=== PATIENT | female | born 1970 | race Caucasian/White ===

== ENCOUNTER 2019-11-08 19:15 | Inpatient (IN) | payer OTHER ==
[~2019-11-08] VITALS: Ht 160 cm; Wt 75.4 kg
[2019-11-08] MEDS ORDERED: JANU100T14 PO (19:28)
[2019-11-08] MEDS ORDERED: LISI10TA4 PO ×2 (19:29→23:59)
[2019-11-08] MEDS ORDERED: GLIP5TAB8 PO ×2 (19:29→23:59)
[2019-11-08 19:53] LABS: BASO # 0.1 10^3/uL (0.0-0.2); BASO % 0.3 % (0.0-1.0); EOS % 0.1 % (0.0-3.0); HEMATOCRIT 40.7 % (36.0-47.0); LYMPH % 8.4 % (24.0-44.0); MEAN CORPUSCULAR HEMOGLOBIN 18.4 pg (27.0-33.0); MEAN CORPUSCULAR VOLUME 68.2 fl (80.0-96.0); MONO # 0.5 10^3/uL (0.0-0.8); MONO % 2.1 % (0.0-5.0); NEUTROPHILS # 20.7 10^3/uL (1.5-8.5); NEUTROPHILS % 88.5 % (36.0-66.0); PLATELET COUNT, AUTOMATED 563 10^3/uL (150-450); RED BLOOD COUNT 5.97 10^6/uL (4.00-5.40); WHITE BLOOD COUNT 23.4 10^3/uL (4.0-10.0)
[2019-11-08] MEDS ORDERED: NS 1,000 ML IV SCH (20:04)
[2019-11-08] MEDS ORDERED: MORPHINE 4 MG/ML 1ML VIAL/SYRINGE (J2270) IV ONE (20:15)
[2019-11-08] MEDS ORDERED: ONDANSETRON 4MG/2ML VIAL (J2405) IV ONE (20:15)
[2019-11-08 20:17] LABS: HCG, SERUM QUALITATIVE NEGATIVE (NEGATIVE)
[2019-11-08 20:18] LABS: ALBUMIN 3.6 GM/DL (3.2-5.2); ALT/SGPT 17 U/L (12-78); BILIRUBIN,DIRECT < 0.1 MG/DL (0.0-0.2); BILIRUBIN,TOTAL 0.3 MG/DL (0.2-1.0); BLOOD UREA NITROGEN 14 MG/DL (7-18); CALCIUM LEVEL 9.2 MG/DL (8.5-10.1); CARBON DIOXIDE LEVEL 25 MEQ/L (21-32); CHLORIDE LEVEL 105 MEQ/L (98-107); CREATININE FOR GFR 0.65 MG/DL (0.55-1.30); GLOMERULAR FILTRATION RATE > 60.0 (>58); GLUCOSE, FASTING 174 MG/DL (70-100); LIPASE 113 U/L (73-393); POTASSIUM SERUM 4.4 MEQ/L (3.5-5.1); SODIUM LEVEL 138 MEQ/L (136-145); TOTAL PROTEIN 7.5 GM/DL (6.4-8.2)
[2019-11-08] MEDS ORDERED: ISOVUE-370 76% 100ML VIAL (Q9967) As Ordered ONE (20:56)
--- NOTE | 2019-11-08 22:24 | REPVR ---
PROCEDURE INFORMATION: Exam: CT Abdomen And Pelvis With Contrast Exam date and time: 11/08/2019 9:17 PM Age: 49 years old Clinical indication: Abdominal pain; Generalized; Additional info: Epigastric and right sided pain TECHNIQUE: Imaging protocol: Computed tomography of the abdomen and pelvis with intravenous contrast. Radiation optimization: All CT scans at this facility use at least one of these dose optimization techniques: automated exposure control; mA and/or kV adjustment per patient size (includes targeted exams where dose is matched to clinical indication); or iterative reconstruction. Contrast material: ISOVUE 370; Contrast volume: 100 ml; Contrast route: IV; COMPARISON: No relevant prior studies available. FINDINGS: Liver: The liver is low attenuation indicating hepatic steatosis. Gallbladder and bile ducts: Normal. No calcified stones. No ductal dilation. Pancreas: Normal. No ductal dilation. Spleen: Normal. No splenomegaly. Adrenals: Normal. No mass. Kidneys and ureters: Non-obstructing calyceal stones in the left kidney. Kidneys are otherwise unremarkable. No hydronephrosis. Stomach and bowel: Wall thickening and bowel wall edema are noted in the small bowel, mainly in the left abdomen. Mild mucosal enhancement and intraluminal fluid. No bowel obstruction, pneumatosis, or portal venous gas. Colon is unremarkable. Appendix: No evidence of appendicitis. Intraperitoneal space: Moderate amount of ascites. Mild interloop free fluid and mesenteric edema. Vasculature: Unremarkable. No abdominal aortic aneurysm. Lymph nodes: Unremarkable. No enlarged lymph nodes. Bladder: Unremarkable as visualized. Reproductive: Probable large dorsal uterine fibroid measuring 4.8 cm. 3.5 cm left ovarian cyst. No hydrosalpinx. Bones/joints: Unremarkable. No acute fracture. Soft tissues: Unremarkable. IMPRESSION: 1. Small bowel wall thickening and edema with moderate amount of ascites suggesting a infectious or inflammatory enteritis. No bowel obstruction or secondary signs of ischemia. 2. Hepatic steatosis. 3. Dorsal uterine fibroid Electronically signed by: Tc Locke On 11/08/2019 22:24:05 PM
[2019-11-08] MEDS ORDERED: JANU100T PO (23:59)
[2019-11-09] MEDS ORDERED: MORPHINE 4 MG/ML 1ML VIAL/SYRINGE (J2270) IV ONE
[2019-11-09] MEDS ORDERED: metroNIDAZOLE 500 MG in IV 1 EA IV ONE ×2
[2019-11-09] MEDS ORDERED: CIPROFLOXACIN 400 MG in IV 1 EA IV ONE ×2
[2019-11-09] MEDS ORDERED: GLUCOSE 4 GM CHEW TABLET PO PRN (00:30)
[2019-11-09] MEDS ORDERED: GLUCAGON FOR INJ 1 MG VIAL (J1610) SC PRN (00:30)
[2019-11-09] MEDS ORDERED: DEXTROSE 50% 50 ML SYRINGE IV PRN (00:30)
--- NOTE | 2019-11-09 00:41 | HPEPDOC ---
General Date of Admission Nov 09, 2019 at 00:20 Date of Service: Nov 09, 2019 Chief Complaint The patient is a 49-year-old female Who presented to the emergency room with complaints of abdominal pain that started at noon History of Present Illness Patient is a 49-year-old female with a PMHx of HTN, NIDDM2, DLP who presented to the ER with complaints of abdominal pain. Patient reported that her abdominal pain started at noon. . She describes her pain occurring in the middle of her abdomen, 10/10, sharp, radiating to the right side and occurring intermittently. Patient had attempted to alleviate her pain with some yogurt and a banana, as she thought it was related to heartburn, however this did not change the intensity of pain. Patient denies any aggravating factors. She has not experienced any fevers or chills over the last 2 weeks. She did report an episode of nausea and vomiting that occurred once while she was in the emergency room. She described the vomitus as light-colored without any blood. Patient denies any diarrhea or constipation and has reported a formed bowel movement that occurred at 4 PM. Patient denies experiencing any urinary discomfort. Patient denies any chest pain, shortness breath, palpitations or cough. Home Medications Scheduled Glipizide (Glipizide) 5 Mg Tablet, 5 MG PO DAILY, (Reported) Lisinopril (Lisinopril) 10 Mg Tablet, 10 MG PO DAILY, (Reported) Sitagliptin Phosphate (Januvia) 100 Mg Tablet, 100 MG PO DAILY, (Reported) Allergies Coded Allergies: No Known Allergies (Unverified , 11/08/19) Past Medical History Medical History HTN, NIDDM2, DLP Surgical History Lithotripsy completed in 2008 Family History - Mother with a history of diabetes and hypertension - Father; unknown past medical history Social History - Denies the use of alcohol, tobacco or illicit drugs - Denies recent travel or sick contacts - Lives with and son at [place] - Occupation; patient reports she is currently unemployed and stays at home Review of Systems Other systems 10 point review of systems complete, all negative otherwise stated in HPI Vital Signs - Vitals: BP 103/72, HR 79, RR 17, Sat 96%RA, Temp 98.0F - General: Lying in bed, No acute distress, Speaking in full sentences, AAOx3 - HEENT: NC, AT, PERRLA, EOMI - CVS: RRR, +S1S2 - Lungs: Fair air entry bilaterally, No appreciable wheezing / rales / rhonchi - Abdomen: Soft, Non-distended, tenderness is noted at epigastrium and right upper quadrant - Extremities: No lower extremity edema, No calf tenderness - Neuro: No focal motor or sensory deficit - Skin: No visible rashes Laboratory Data Labs 24H Laboratory Tests 2 11/08/19 19:43: Immature Granulocyte % (Auto) 0.6, Neutrophils (%) (Auto) 88.5H, Lymphocytes (%) (Auto) 8.4L, Monocytes (%) (Auto) 2.1, Eosinophils (%) (Auto) 0.1, Basophils (%) (Auto) 0.3, Neutrophils # (Auto) 20.7H, Lymphocytes # (Auto) 2.0, Monocytes # (Auto) 0.5, Eosinophils # (Auto) 0.0, Basophils # (Auto) 0.1, Nucleated Red Blood Cells % (auto) 0.0, Anion Gap 8, Glomerular Filtration Rate > 60.0, Calcium Level 9.2, Total Bilirubin 0.3, Direct Bilirubin < 0.1, Aspartate Amino Transf (AST/SGOT) 9, Alanine Aminotransferase (ALT/SGPT) 17, Alkaline Phosphatase 89, Total Protein 7.5, Albumin 3.6, Albumin/Globulin Ratio 0.92L, Lipase 113, Human Chorionic Gonadotropin, Qual NEGATIVE 11/08/19 22:51: Lactic Acid Level 1.6 CBC/BMP Laboratory Tests 11/08/19 19:43 Plan / VTE VTE Prophylaxis Ordered?: Yes Plan Plan Abdominal pain associated with nausea and vomiting - possibly 2/2 enteritis; possibly 2/2 bacterial, possibly 2/2 viral, possibly 2/2 inflammatory disease - Presented to the emergency room after experiencing abdominal pain that started at noon - Physical does reveal epigastric tenderness - Patient remains hemodynamically stable and afebrile - Significant leukocytosis with neutrophil predominance; no lactic acidosis - CT abdomen / pelvis 11/08: 1. Small bowel wall thickening and edema with moderate amount of ascites suggesting a infectious or inflammatory enteritis. No bowel obstruction or secondary signs of ischemia. 2. Hepatic steatosis. 3. Dorsal uterine fibroid - Will check blood cultures / CRP / IBD serology / UA with reflex - Will c/w Ciprofloxacin and Flagyl for intra-abdominal coverage - Will c/w symptomatic control with Morphine / Dicyclomine / Zofran - Case has been discussed by ER provider, Dr. Larson with General surgery, Dr. Keene - Has noted that he will be on consultation tomorrow AM Ascites - possibly 2/2 enteritis - Liver function is within normal range - Will continue with antibiotics as stated above - Consider possible diagnostic paracentesis tomorrow morning Leukocytosis - See above Thrombocytosis - likely 2/2 reactive etiology - Will continue to monitor counts Normocytic anemia - No baseline for comparison - Will continue to monitor counts HTN - BP appears to be well controlled - Will c/w Lisinopril with holding parameters NIDDM2 - Will hold oral medications - Will start ISS DLP - Currently not on any medications Gastrointestinal prophylaxis - Will start Protonix DVT prophylaxis - Will start Lovenox ALEXIS HUGO MD Nov 09, 2019 00:41
[2019-11-09 01:45] VITALS: BP 118/75
[2019-11-09] MEDS: PANTOPRAZOLE 40MG INJ (PROTONIX) (C9113) IV SCH (02:09)
[2019-11-09] MEDS: D5W/0.45% SODIUM CHLORIDE 1,000 ML IV SCH ×2 (02:09→16:19)
[2019-11-09] MEDS: metroNIDAZOLE 500 MG in IV 1 EA IV SCH ×3 (02:09→18:21)
[2019-11-09] MEDS: HumaLOG INSULIN (NovoLOG) PER UNIT SC SCH ×6 (07:30→21:00)
[2019-11-09 08:00] VITALS: BP 110/67
[2019-11-09] MEDS: lisinopriL 10 MG TAB PO SCH (08:49)
[2019-11-09] MEDS: MORPHINE 2 MG/ML 1ML VIAL (J2270) IV PRN ×3 (08:50→18:22)
[2019-11-09] MEDS: ENOXAPARIN 40 MG/0.4 ML SYRINGE (J1650) SC SCH (08:50)
[2019-11-09 09:11] LABS: HEMATOCRIT 32.2 % (36.0-47.0); MEAN CORPUSCULAR HEMOGLOBIN 18.9 pg (27.0-33.0); MEAN CORPUSCULAR VOLUME 67.8 fl (80.0-96.0); PLATELET COUNT, AUTOMATED 475 10^3/uL (150-450); RED BLOOD COUNT 4.75 10^6/uL (4.00-5.40); WHITE BLOOD COUNT 16.5 10^3/uL (4.0-10.0)
[2019-11-09 09:41] LABS: BLOOD UREA NITROGEN 12 MG/DL (7-18); CALCIUM LEVEL 8.1 MG/DL (8.5-10.1); CARBON DIOXIDE LEVEL 25 MEQ/L (21-32); CHLORIDE LEVEL 106 MEQ/L (98-107); CREATININE FOR GFR 0.64 MG/DL (0.55-1.30); GLOMERULAR FILTRATION RATE > 60.0 (>58); GLUCOSE, FASTING 152 MG/DL (70-100); SODIUM LEVEL 138 MEQ/L (136-145)
[2019-11-09] MEDS: DICYCLOMINE 10 MG CAP PO PRN (10:16)
[2019-11-09] MEDS: CIPROFLOXACIN 400 MG in IV 1 EA IV SCH (11:52)
--- NOTE | 2019-11-09 16:00 | IPNPDOC ---
Date Seen The patient was seen on 11/09/19. Progress Note SUBJECTIVE: Rocio was seen and examined this morning while sitting upright in bed. She reports being able to get some sleep overnight. Patient reports continuing to have epigastric discomfort that radiates to her right upper abdominal quadrant whenever she moves. She does however state that this discomfort is improved from yesterday. Patient had some burning with urination last evening. Patient has been walking to and from the bathroom with the assistance of nursing as she complains of associated dizziness with ambulation. Patient has not had a bowel movement since 1600 yesterday but is passing flatus. Patient also endorses moderate skin "tightness" of right forearm and right hand. Patient denies headache, feeling lightheaded, dizziness, fever, chills, night sweats chest pain, chest pressure, palpitations, shortness of breath, dysuria or hematuria currently. Patient also denies consuming any recent undercooked meats, difficulty swallowing, any recent new medications or change in medications, any new changes in diet, or family history of inflammatory bowel disease. OBJECTIVE PHYSICAL EXAMINATION: VITAL SIGNS: Please see below. GENERAL: Pleasant female who is well-nourished and well-developed. Patient appears to be in some mild discomfort at times during exam, but is in no apparent acute distress of any kind. Alert and oriented 3. HEENT: Normocephalic, atraumatic. Anicteric and noninjected sclera. No pharyngeal erythema or exudate. Trachea is midline. CARDIOVASCULAR: Regular rate, regular rhythm. S1, S2 auscultated. No murmurs or rubs appreciated. RESPIRATORY: No wheezes, crackles or rhonchi appreciated. Mildly diminished tidal volume. Symmetric chest expansion. Breathing room air and speaking in full senses.. ABDOMINAL: Soft, nondistended. Tenderness of right upper quadrant, right lower quadrant, and epigastrum with localized voluntary guarding. Normoactive bowel sounds present. Winces in discomfort throughout abdominal exam. No palpable masses appreciated. EXTREMITIES: 2+ radial and posterior tibial pulses bilaterally. No lower extremity edema. No clubbing or cyanosis. Right forearm and right dorsum of hand appear moderately swollen as compared to the left. There is no erythema or skin breakdown and there is adequate capillary refill. IV in place in right AC. NEUROLOGICAL: Awake, alert and oriented 3. No focal neurological deficits appreciated. PSYCHOLOGICAL: Mood and affect appear appropriate LABORATORY DATA, IMAGING STUDIES, MICROBIOLOGY: Please see below. ASSESSMENT AND PLAN: This is a 49-year-old female with past medical history of hypertension, type 2 diabetes, dyslipidemia, who presented to the emergency department on 11/08 after experiencing abdominal pain earlier in the day radiating to her right side with one episode of nausea and vomiting in the emergency department. In the emergency department she was found to have neutrophil predominant leukocytosis with microcytic hypochromic anemia and thrombocytopenia. CT abdomen and pelvis showed small bowel edema and wall thickening with a moderate amount of ascites and hepatic steatosis. There was no small bowel obstruction or signs of ischemia. Patient was admitted under the care of the hospitalist service. #Ascites likely secondary to ileitis/enteritis -Moderate ascites visualized on CT abdomen and pelvis with edema and thickened small bowel king -Day 2 of ciprofloxacin and metronidazole -WBC remains elevated, but decreased from yesterday; continue to follow -Patient switched to a clear liquid diet today; should she tolerate this, plan to advance to soft diet tomorrow -Patient placed on dairy restrictions -prn Zofran and dicyclomine #Neutrophil predominant leukocytosis -WBC remains elevated, but is trending down.; Continue to follow -Continue with ciprofloxacin and metronidazole #Microcytic hypochromic anemia -No prior history and system to compare to baseline; continue to follow #Thrombocytopenia -Remains elevated, but decreased from yesterday; continue to follow #Type 2 diabetes: -Home oral diabetes medications held -Continue with sliding scale insulin #Hypertension: -Well-controlled; continue with home lisinopril #GI prophylaxis: Protonix IV #DVT prophylaxis: Lovenox sc DISPOSITION: Discharged likely in the next day or 2 pending continued toleration of diet advancement and downtrending WBC. VS, I&O, 24H, Fishbone Vital Signs/I&O Vital Signs Date Time Temp Pulse Resp B/P (MAP) Pulse Ox O2 Delivery O2 Flow Rate FiO2 11/09/19 13:10 20 Room Air 11/09/19 08:49 110/67 11/09/19 08:00 98.0 78 95 I&O- Last 24 Hours up to 6 AM 11/09/19 06:00 Intake Total 1340 ml Output Total 300 ml Balance 1040 ml Laboratory Data 24H LABS Laboratory Tests 2 11/08/19 19:43: Immature Granulocyte % (Auto) 0.6, Neutrophils (%) (Auto) 88.5H, Lymphocytes (%) (Auto) 8.4L, Monocytes (%) (Auto) 2.1, Eosinophils (%) (Auto) 0.1, Basophils (%) (Auto) 0.3, Neutrophils # (Auto) 20.7H, Lymphocytes # (Auto) 2.0, Monocytes # (Auto) 0.5, Eosinophils # (Auto) 0.0, Basophils # (Auto) 0.1, Nucleated Red Blood Cells % (auto) 0.0, Anion Gap 8, Glomerular Filtration Rate > 60.0, Calcium Level 9.2, Total Bilirubin 0.3, Direct Bilirubin < 0.1, Aspartate Amino Transf (AST/SGOT) 9, Alanine Aminotransferase (ALT/SGPT) 17, Alkaline Phosphatase 89, Total Protein 7.5, Albumin 3.6, Albumin/Globulin Ratio 0.92L, Lipase 113, Human Chorionic Gonadotropin, Qual NEGATIVE 11/08/19 22:51: Lactic Acid Level 1.6 11/09/19 00:38: C-Reactive Protein, Quantitative 1.29H 11/09/19 01:57: Urine Color YELLOW, Urine Appearance CLEAR, Urine pH 5.0, Urine Specific [place] >1.060H, Urine Protein NEGATIVE, Urine Glucose (UA) 1+H, Urine Ketones 1+H, Urine Blood NEGATIVE, Urine Nitrite NEGATIVE, Urine Bilirubin NEGATIVE, Urine Urobilinogen 0.2, Urine Leukocyte Esterase NEGATIVE, Urine WBC (Auto) 1, Urine RBC (Auto) 2, Urine Hyaline Casts (Auto) 0, Urine Bacteria (Auto) NEGATIVE, Urine Squamous Epithelial Cells 2, Urine Mucus (Auto) SMALL, Urine Sperm (Auto) 11/09/19 02:14: Bedside Glucose (Misc Panel) 183H 11/09/19 08:18: Bedside Glucose (Misc Panel) 153H 11/09/19 08:31: Nucleated Red Blood Cells % (auto) 0.0, Anion Gap 7L, Glomerular Filtration Rate > 60.0, Calcium Level 8.1L 11/09/19 11:36: Bedside Glucose (Misc Panel) 133H CBC/BMP Laboratory Tests 11/08/19 19:43 11/09/19 08:31 Microbiology Microbiology 11/09/19 Blood Culture, Received Pending 11/09/19 Blood Culture, Received Pending GME ATTESTATION GME ATTESTATION My faculty preceptor for this patient encounter was physically present during the encounter and was fully available. All aspects of the patient interview, examination, medical decision making process, and medical care plan development were reviewed and approved by the faculty preceptor. The faculty preceptor is aware and concurs with the plan as stated in the body of this note and will attest to such by his/her cosignature. ATTENDING NOTE Patient was seen and examined by me this morning with the residents. Agree with the above assessment and plan CARLOS PEREZ D.O. Nov 09, 2019 16:00 MARCO HALL MD Nov 10, 2019 10:41
[2019-11-09 20:10] VITALS: BP 93/55
[2019-11-10] MEDS: PANTOPRAZOLE 40MG INJ (PROTONIX) (C9113) IV SCH ×2 (00:17→23:51)
[2019-11-10] MEDS: CIPROFLOXACIN 400 MG in IV 1 EA IV SCH ×3 (00:17→23:51)
[2019-11-10] MEDS: D5W/0.45% SODIUM CHLORIDE 1,000 ML IV SCH (02:30)
[2019-11-10] MEDS: metroNIDAZOLE 500 MG in IV 1 EA IV SCH ×3 (02:31→18:30)
[2019-11-10 05:48] VITALS: BP 105/65
[2019-11-10 06:59] LABS: BASO % 0.3 % (0.0-1.0); EOS # 0.2 10^3/uL (0.0-0.5); EOS % 1.8 % (0.0-3.0); HEMATOCRIT 28.8 % (36.0-47.0); HEMOGLOBIN 7.8 g/dl (12.0-15.5); LYMPH # 2.6 10^3/uL (1.5-5.0); LYMPH % 25.9 % (24.0-44.0); MEAN CORPUSCULAR HEMOGLOBIN 18.6 pg (27.0-33.0); MEAN CORPUSCULAR HGB CONC 27.1 g/dl (32.0-36.5); MEAN CORPUSCULAR VOLUME 68.7 fl (80.0-96.0); MONO # 0.8 10^3/uL (0.0-0.8); MONO % 7.7 % (0.0-5.0); NEUTROPHILS # 6.4 10^3/uL (1.5-8.5); NEUTROPHILS % 63.9 % (36.0-66.0); PLATELET COUNT, AUTOMATED 384 10^3/uL (150-450); RED BLOOD COUNT 4.19 10^6/uL (4.00-5.40)
[2019-11-10 07:21] LABS: ALBUMIN 2.6 GM/DL (3.2-5.2); ALT/SGPT 9 U/L (12-78); BILIRUBIN,TOTAL 0.3 MG/DL (0.2-1.0); BLOOD UREA NITROGEN 7 MG/DL (7-18); CALCIUM LEVEL 7.9 MG/DL (8.5-10.1); CARBON DIOXIDE LEVEL 24 MEQ/L (21-32); CHLORIDE LEVEL 109 MEQ/L (98-107); GLOMERULAR FILTRATION RATE > 60.0 (>58); GLUCOSE, FASTING 143 MG/DL (70-100); MAGNESIUM LEVEL 1.9 MG/DL (1.8-2.4); POTASSIUM SERUM 3.7 MEQ/L (3.5-5.1); SODIUM LEVEL 139 MEQ/L (136-145); TOTAL PROTEIN 6.2 GM/DL (6.4-8.2)
[2019-11-10] MEDS: HumaLOG INSULIN (NovoLOG) PER UNIT SC SCH ×4 (07:30→21:00)
[2019-11-10 08:15] LABS: HEMATOCRIT 29.3 % (36.0-47.0); HEMOGLOBIN 7.9 g/dl (12.0-15.5); MEAN CORPUSCULAR HEMOGLOBIN 18.5 pg (27.0-33.0); MEAN CORPUSCULAR VOLUME 68.8 fl (80.0-96.0); PLATELET COUNT, AUTOMATED 388 10^3/uL (150-450); RED BLOOD COUNT 4.26 10^6/uL (4.00-5.40); WHITE BLOOD COUNT 10.1 10^3/uL (4.0-10.0)
[2019-11-10] MEDS: lisinopriL 10 MG TAB PO SCH (08:35)
[2019-11-10] MEDS: MORPHINE 2 MG/ML 1ML VIAL (J2270) IV PRN (08:35)
[2019-11-10 08:52] LABS: C REACTIVE PROTEIN QUANTITATIV 1.59 MG/DL (0.00-0.30)
[2019-11-10] MEDS: ENOXAPARIN 40 MG/0.4 ML SYRINGE (J1650) SC SCH (09:00)
[2019-11-10] MEDS ORDERED: ISOVUE-370 76% 100ML VIAL (Q9967) As Ordered ONE (09:17)
--- NOTE | 2019-11-10 10:23 | REP ---
CT ABDOMEN AND PELVIS WITH IV BUT WITHOUT ORAL CONTRAST: HISTORY: Rule out intra-abdominal bleeding. Comparison study November 08, 2019. CT CONTRAST DOSE: 100 mL of intravenous Isovue [address] FINDINGS: Preliminary digital terrazzo journeyman radiograph demonstrates a normal bowel gas pattern. There is bilateral lower lobe and bibasilar discoid atelectasis. A small right pleural effusion is seen and a tiny amount of left pleural fluid is observed. Pleural changes are new. There is minimal upper abdominal ascites which is actually little less prominent than on the November 08, 2019 prior study. There is mild ascites in the paracolic gutter and peritoneal reflections essentially unchanged. There is a fold in the gallbladder fundus. No other abnormality is noted in the gallbladder. No abnormality is noted in the pancreas. Normal adrenal glands are seen. Mild diffuse fatty infiltration of the liver. There is an intrarenal calculus in the lower pole left kidney which measures 9 mm in greatest diameter. This is unchanged. There are one or two loops of small bowel demonstrating moderate mural thickening in the left mid abdomen. This is less extensive but otherwise similar than on the November 08, 2019 study. No obstructive lesion is seen. Large bowel does not appear to be affected. There is a large enhancing uterine fibroid, 5.5 cm in greatest diameter in the dorsal aspect of the fundus of the uterus. Uterus is enlarged measuring 14 cm x 8.8 cm x 7.4 cm in overall dimension. This is unchanged. There is a small left ovarian cyst, 3.1 cm in diameter. IMPRESSION: There is a little less ascites. There is still some mural thickening in a loop of small bowel in the left mid abdomen however this is somewhat improved from the November 08, 2019. The uterus is moderately to markedly enlarged, 14 cm. There is a 5 cm fibroid. A small left ovarian cyst is seen. There is a 9 mm intrarenal calculus in the lower pole left kidney without hydronephrosis. Electronically Signed by Tito Keith MD 11/10/2019 08:44 P
[2019-11-10 14:00] VITALS: BP 108/66
[2019-11-10 14:10] LABS: HEMATOCRIT 27.6 % (36.0-47.0); HEMOGLOBIN 7.8 g/dl (12.0-15.5)
[2019-11-10 14:22] LABS: INR 1.17; PROTHROMBIN TIME 14.6 SECONDS (11.8-14.0)
[2019-11-10 14:23] LABS: PARTIAL THROMBOPLASTIN TIME 25.4 SECONDS (25.0-38.4)
[2019-11-10] MEDS: ONDANSETRON 4MG/2ML VIAL (J2405) IV PRN (18:30)
--- NOTE | 2019-11-10 19:36 | IPNPDOC ---
Date Seen The patient was seen on 11/10/19. Progress Note SUBJECTIVE: Rocio was seen and examined this morning while lying upright in bed. She reports still being in discomfort secondary to her abdominal pain localized to the epigastrium and right upper and right lower abdominal quadrants. She states that severity of her pain and discomfort. Has not increased from yesterday. She continues to have feel mildly nauseated and bloated, with some occasional heartburn. She has not had a bowel movement since admission. She has not vomited. Patient denies current or recent hematemesis, coffee ground emesis, melena, hematochezia, blood in the stool/probable water/toilet tissue, epistaxis, hematuria, hemoptysis, easy bleeding or easy bruising of any kind, or history of GI bleed or inflammatory bowel disease. Patient states that 3 [address] ago while in the [facility]. She developed acute drop in hemoglobin into the sixes and was treated with 2 blood transfusions. She states that she had had 3 weeks of very heavy menses leading into her time of anemia and transfusions. She took oral contraceptive pills for a few months and her menses subsequently returned to normal. Patient did have a EGD performed approximately 10 years ago that showed a non-bleeding, nonperforated gastric ulcer. Patient also denies feeling lightheaded, headache, fever, chills, or night sweats at this time. OBJECTIVE PHYSICAL EXAMINATION: VITAL SIGNS: Please see below. GENERAL: Pleasant female who is well-nourished and well-developed. Patient appears to be in some moderate discomfort at times during exam, but is in no apparent acute distress of any kind. Alert and oriented 3. HEENT: Normocephalic, atraumatic. Anicteric and noninjected sclera. Mild conjunctival pallor. Trachea is midline. CARDIOVASCULAR: Regular rate, regular rhythm. S1, S2 auscultated. No murmurs or rubs appreciated. RESPIRATORY: No wheezes, crackles or rhonchi appreciated. Mildly diminished tid al volume. Symmetric chest expansion. Breathing room air and speaking in full sentences ABDOMINAL: Soft, mild distention. Tenderness of right upper quadrant, right lower quadrant, and epigastrum with localized voluntary guarding. Hypoactive bowel sounds present. Winces in discomfort throughout abdominal exam. No palpable masses appreciated. EXTREMITIES: 2+ radial and posterior tibial pulses bilaterally. No lower extremity edema. No clubbing or cyanosis. Swelling of right upper extremity from yesterday has resolved. IV is now present in left forearm. NEUROLOGICAL: Awake, alert and oriented 3. No focal neurological deficits appreciated. PSYCHOLOGICAL: Mood and affect appear appropriate LABORATORY DATA, IMAGING STUDIES, MICROBIOLOGY: Please see below. ASSESSMENT AND PLAN: This is a 49-year-old female with past medical history of hypertension, type 2 diabetes, dyslipidemia, who presented to the emergency department on 11/08 after experiencing abdominal pain earlier in the day radiating to her right side with one episode of nausea and vomiting in the emergency department. In the emergency department she was found to have neutrophil predominant leukocytosis with microcytic hypochromic anemia and thrombocytopenia. CT abdomen and pelvis showed small bowel edema and wall thickening with a moderate amount of ascites and hepatic steatosis. There was no small bowel obstruction or signs of ischemia. Patient was admitted under the care of the hospitalist service. Patient continued to have epigastric and right abdominal tenderness, mild distention, nausea and reflux through 11/09 and 11/10. White blood cell count and platelet count returned to normal limits on 11/10. Patient tolerated clear liquid diet well on 11/09. Critical drop to hemoglobin in the upper sevens on 11/[address] abdomen and pelvis with IV contrast that showed a little less ascites in the abdomen and pelvis as compared to the 11/08 study. Mural thickening was still seen of the small bowel, but was somewhat improved from 11/08 study. Uterus was markedly enlarged to 14 cm with a 5 cm fibroid. Repeat H&H's remained around 8 on 11/10. Patient had no significant history that would explain acute drop in hemoglobin. Coagulation studies, LDH, reticulocyte count and peripheral smear ordered on 11/10. Consultation placed with general surgery to evaluate for possible internal bleeding on 11/10. Patient made NPO for general surgery consultation. #Ascites likely secondary to ileitis/enteritis -Ascites and small bowel mural thickening still present on repeat CT abdomen today, but decreased from 11/08 study -Day 3 of ciprofloxacin and metronidazole -Patient currently NPO for general surgery evaluation -Patient placed on dairy restrictions -prn Zofran and dicyclomine #Microcytic hypochromic anemia -No prior history and system to compare to baseline -Hemoglobin dropped roughly 3 units since admission, 11.0 to 7.9 -Morning Hemoglobin rechecked to rule out lab error and it remained around 8 -Continuing to trend H&H -Coagulation profile, reticulocyte count, LDH, and peripheral smear ordered -Patient had episode of critical anemia (Hgb around 6) 3 years ago after heavy menses, received 2 units blood. -CT abdomen and pelvis with contrast ordered to rule out intra-abdominal or intrapelvic bleeding -General surgery consult placed to evaluate for internal bleeding -Virus responsible for ileitis/enteritis may be compromising bone marrow #Neutrophil predominant leukocytosis, resolved -WBC now within normal limits #Thrombocytopenia, resolved -Platelets now within normal limits #Type 2 diabetes: -Home oral diabetes medications held -Continue with sliding scale insulin #Hypertension: -Well-controlled; continue with home lisinopril #GI prophylaxis: Protonix IV #DVT prophylaxis: Lovenox sc discontinued today after continued drop in Hgb DISPOSITION: Pending H&H trend, general surgery consultation, and tolerance of eventual diet advancement. VS, I&O, 24H, Fishbone Vital Signs/I&O Vital Signs Date Time Temp Pulse Resp B/P (MAP) Pulse Ox O2 Delivery O2 Flow Rate FiO2 11/10/19 14:00 98.6 79 16 108/66 (80) 95 Room Air I&O- Last 24 Hours up to 6 AM 11/10/19 06:00 Intake Total 2080 ml Output Total 250 ml Balance 1830 ml Laboratory Data 24H LABS Laboratory Tests 2 11/09/19 20:08: Bedside Glucose (Misc Panel) 103 11/10/19 06:47: Immature Granulocyte % (Auto) 0.4, Neutrophils (%) (Auto) 63.9, Lymphocytes (%) (Auto) 25.9, Monocytes (%) (Auto) 7.7H, Eosinophils (%) (Auto) 1.8, Basophils (%) (Auto) 0.3, Neutrophils # (Auto) 6.4, Lymphocytes # (Auto) 2.6, Monocytes # (Auto) 0.8, Eosinophils # (Auto) 0.2, Basophils # (Auto) 0.0, Nucleated Red Blood Cells % (auto) 0.0, Anion Gap 6L, Glomerular Filtration Rate > 60.0, Calcium Level 7.9L, Magnesium Level 1.9, Total Bilirubin 0.3, Aspartate Amino Transf (AST/SGOT) 5L, Alanine Aminotransferase (ALT/SGPT) 9L, Alkaline Phosphatase 61, C-Reactive Protein, Quantitative 1.59H, Total Protein 6.2L, Albumin 2.6#L, Albumin/Globulin Ratio 0.72L 11/10/19 08:07: Nucleated Red Blood Cells % (auto) 0.0 11/10/19 12:00: Bedside Glucose (Misc Panel) 102 11/10/19 13:58: Reticulocyte # (auto) 70.6, Differential Slide Review Report, Peripheral Blood Smear Path Consult PERIPHERAL SMEAR, Percent Reticulocyte Count 1.7H, Reticulocyte Hemoglobin Equivalent 19.2L, Prothrombin Time 14.6H, Prothromb Time International Ratio 1.17, Activated Partial Thromboplast Time 25.4, Lactate Dehydrogenase 110 11/10/19 16:37: Bedside Glucose (Misc Panel) 93 CBC/BMP Laboratory Tests 11/10/19 06:47 11/10/19 08:07 11/10/19 13:58 Microbiology Microbiology 11/09/19 Blood Culture - Preliminary, Resulted No growth after 24 hours . All specim... 11/09/19 Blood Culture - Preliminary, Resulted No growth after 24 hours . All specim... CARLOS PEREZ D.O. Nov 10, 2019 19:36
[2019-11-10 21:53] LABS: HEMATOCRIT 28.6 % (36.0-47.0); HEMOGLOBIN 7.8 g/dl (12.0-15.5)
[2019-11-10 22:00] VITALS: BP 112/71
[2019-11-11] MEDS: metroNIDAZOLE 500 MG in IV 1 EA IV SCH ×3 (01:31→17:53)
[2019-11-11 06:00] VITALS: BP 112/72
[2019-11-11 06:38] LABS: BASO % 0.4 % (0.0-1.0); EOS # 0.2 10^3/uL (0.0-0.5); HEMATOCRIT 28.6 % (36.0-47.0); LYMPH # 2.4 10^3/uL (1.5-5.0); LYMPH % 26.5 % (24.0-44.0); MEAN CORPUSCULAR HEMOGLOBIN 19.1 pg (27.0-33.0); MEAN CORPUSCULAR VOLUME 68.3 fl (80.0-96.0); MONO # 0.7 10^3/uL (0.0-0.8); NEUTROPHILS # 5.8 10^3/uL (1.5-8.5); NEUTROPHILS % 62.7 % (36.0-66.0); PLATELET COUNT, AUTOMATED 415 10^3/uL (150-450); RED BLOOD COUNT 4.19 10^6/uL (4.00-5.40); WHITE BLOOD COUNT 9.2 10^3/uL (4.0-10.0)
[2019-11-11 07:09] LABS: ALBUMIN 2.9 GM/DL (3.2-5.2); ALT/SGPT 11 U/L (12-78); BILIRUBIN,TOTAL 0.3 MG/DL (0.2-1.0); BLOOD UREA NITROGEN 8 MG/DL (7-18); CALCIUM LEVEL 8.5 MG/DL (8.5-10.1); CARBON DIOXIDE LEVEL 23 MEQ/L (21-32); CHLORIDE LEVEL 108 MEQ/L (98-107); CREATININE FOR GFR 0.61 MG/DL (0.55-1.30); GLOMERULAR FILTRATION RATE > 60.0 (>58); GLUCOSE, FASTING 99 MG/DL (70-100); MAGNESIUM LEVEL 1.9 MG/DL (1.8-2.4); POTASSIUM SERUM 3.8 MEQ/L (3.5-5.1); SODIUM LEVEL 139 MEQ/L (136-145); TOTAL PROTEIN 6.8 GM/DL (6.4-8.2)
[2019-11-11] MEDS: HumaLOG INSULIN (NovoLOG) PER UNIT SC SCH ×4 (07:30→20:58)
[2019-11-11] MEDS: lisinopriL 10 MG TAB PO SCH (09:39)
[2019-11-11] MEDS: ENOXAPARIN 40 MG/0.4 ML SYRINGE (J1650) SC SCH (09:39)
[2019-11-11] MEDS: ONDANSETRON 4MG/2ML VIAL (J2405) IV PRN (09:40)
[2019-11-11 11:05] LABS: FERRITIN 8 NG/ML (8-252); IRON (FE) 14 UG/DL (50-170); PERCENT SATURATION 3.3 % (13.2-45.0); TOTAL IRON BINDING CAPACITY 421 UG/DL (250-450)
[2019-11-11] MEDS: CIPROFLOXACIN 400 MG in IV 1 EA IV SCH ×3 (12:15→23:58)
[2019-11-11] MEDS ORDERED: MOM 30ML SUSPENSION UDC PO ONE (13:00)
--- NOTE | 2019-11-11 13:03 | CR.PDOC ---
General Surgery Consultation Date of Consultation 11/11/19 History and Physical CONSULT REPORT FOR: hospitalist service REASON FOR CONSULTATION: anemia, enteritis HISTORY OF PRESENT ILLNESS: Patient is a relatively healthy 49 year old female admitted for abdominal pain from enteritis PAST MEDICAL HISTORY: 1. . PAST SURGICAL HISTORY: INCLUDES: 1. . PREVIOUS ANESTHESIA REACTIONS: ALLERGIES: Please see below. FAMILY HISTORY: . HOME MEDICATIONS: Please see below. REVIEW OF SYSTEMS: GENERAL: [Denies chills, reports weight gain, reports feeling febrile yesterday]. HEENT: [Denies blurred vision and double vision. Denies ear symptoms. Denies hoarseness]. NECK: Denies any neck pain]. CARDIOVASCULAR: [Denies chest pain and palpitations]. MUSCULOSKELETAL: [Denies arthralgias, back pain and thrombophlebitis]. SKIN: [Denies rash]. NEUROLOGIC: [Denies headache, stroke and transient ischemic attack]. PSYCHIATRIC: [Denies anxiety and depression]. ENDOCRINE: [Denies thyroid disease]. HEMATOLOGY/ONCOLOGY: [Denies bleeding or clotting disorder]. HEART: [Denies any chest pains, palpitations, paroxysmal dyspnea, orthopnea]. PULMONARY: [Denies chronic cough, dyspnea and wheezing]. GASTROINTESTINAL: [Denies rectal bleeding, family history of colon cancer, constipation, diarrhea, dysphagia, heartburn and jaundice]. GENITOURINARY: [Denies dysuria, frequency, hematuria and nocturia]. ENDOCRINE: [Denies polydipsia, polyphagia, polyuria, heat or cold intolerance]. INFECTIOUS: [Denies any recent upper respiratory tract infection, UTI, need for use of antibiotics]. NUTRITION: [Reports good appetite]. PHYSICAL EXAMINATION: VITALS SIGNS: Please see below. GENERAL APPEARANCE:[Patient seen, laying in bed, awake, alert, and oriented. Comfortable, in no acute distress]. SKIN: [Warm and moist]. HEENT: [Normocephalic, atraumatic. [place] palpebral conjunctiva, anicteric sclerae. Lips and mucosa appear moist]. NECK: [Supple, no thyromegaly. No obvious jugular venous distention]. LUNGS: [Clear to auscultation bilaterally. No wheezing appreciated]. HEART: [No chest wall abnormalities. Regular rate and rhythm with no murmurs appreciated]. ABDOMEN: Abdomen is , soft, . [No hepatosplenomegaly. No umbilical or groin herniations, nondistended. No noticeable rebound or guarding. No grimacing with palpation. No rebound tenderness. No masses appreciated]. EXTREMITIES: [Extremities have no deformities. No edema identified] ANCILLARIES: . LABORATORY DATA: Please see below. IMAGING STUDIES: CT abdomen and pelvis (11/08) 1. Small bowel wall thickening and edema with moderate amount of ascites suggesting a infectious or inflammatory enteritis. No bowel obstruction or secondary signs of ischemia. 2. Hepatic steatosis. 3. Dorsal uterine fibroid CT abdomen and pelvis (11/10) There is a little less ascites. There is still some mural thickening in a loop of small bowel in the left mid abdomen however this is somewhat improved from the November 08, 2019. The uterus is moderately to markedly enlarged, 14 cm. There is a 5 cm fibroid. A small left ovarian cyst is seen. IMPRESSION AND PLAN: Acute enteritis probably infectious anemia the question posed to me is whether to be concerned about bleeding as the cause of the ascites to explain the drop in her hgb and hct. I think this is very unlikely. The ascites is related to the infectious process presumably and probably third spacing. The drop in the hgb/hct is probably dilutional as well as part of the infectious process. I do not see anything on the CT or in her history and examination that points to possibility of intraabdominal bleeding. She has not had a bm since she has been here. So unlikely she has any intraluminal bleed (whether upper or lower gi bleed). Blood is usually cathartic. She has had a normal BUN since admission so she is not reabsorbing any blood. This will probably settle down and return to normal once her acute disease resolves. She still looks somewhat distended which maybe a component of ileus. I will give her a dose of mom. I think her diet can be advanced as tolerated. I will not regularly follow her as I dont think there is any active surgical disease at this point. If any concerns or changes in her course, feel free to contact me. Thank you for the consult. Vital Signs Vital Signs Date Time Temp Pulse Resp B/P (MAP) Pulse Ox O2 Delivery O2 Flow Rate FiO2 11/11/19 09:39 114/74 11/11/19 06:00 98.4 79 16 97 Room Air I&Os I&O- Last 24 Hours up to 6 AM 11/11/19 06:00 Intake Total 0 ml Balance 0 ml Laboratory Data Labs 24H Laboratory Tests 2 11/10/19 13:58: Reticulocyte # (auto) 70.6, Differential Slide Review Report, Peripheral Blood S mear Path Consult PERIPHERAL SMEAR, Percent Reticulocyte Count 1.7H, Reticulocyte Hemoglobin Equivalent 19.2L, Prothrombin Time 14.6H, Prothromb Time International Ratio 1.17, Activated Partial Thromboplast Time 25.4, Lactate Dehydrogenase 110 11/10/19 16:37: Bedside Glucose (Misc Panel) 93 11/10/19 20:43: Bedside Glucose (Misc Panel) 89 11/11/19 06:12: Immature Granulocyte % (Auto) 0.4, Neutrophils (%) (Auto) 62.7, Lymphocytes (%) (Auto) 26.5, Monocytes (%) (Auto) 8.0H, Eosinophils (%) (Auto) 2.0, Basophils (%) (Auto) 0.4, Neutrophils # (Auto) 5.8, Lymphocytes # (Auto) 2.4, Monocytes # (Auto) 0.7, Eosinophils # (Auto) 0.2, Basophils # (Auto) 0.0, Nucleated Red Blood Cells % (auto) 0.0, Anion Gap 8, Glomerular Filtration Rate > 60.0, Calcium Level 8.5, Magnesium Level 1.9, Iron Level 14L, Total Iron Binding Capacity 421, Transferrin % Saturation 3.3L, Ferritin 8, Total Bilirubin 0.3, Aspartate Amino Transf (AST/SGOT) 13, Alanine Aminotransferase (ALT/SGPT) 11L, Alkaline Phosphatase 63, Total Protein 6.8, Albumin 2.9L, Albumin/Globulin Ratio 0.74L 11/11/19 11:38: Bedside Glucose (Misc Panel) 96 CBC/BMP Laboratory Tests 11/10/19 13:58 11/10/19 21:45 11/11/19 06:12 Microbiology Microbiology 11/09/19 Blood Culture - Preliminary, Resulted No Growth after 48 hours. All Specime... 11/09/19 Blood Culture - Preliminary, Resulted No Growth after 48 hours. All Specime... Home Medications Scheduled Glipizide (Glipizide) 5 Mg Tablet, 5 MG PO DAILY, (Reported) Lisinopril (Lisinopril) 10 Mg Tablet, 10 MG PO DAILY, (Reported) Sitagliptin Phosphate (Januvia) 100 Mg Tablet, 100 MG PO DAILY, (Reported) Allergies Coded Allergies: No Known Allergies (Unverified , 11/08/19) FLAKITA MEJIA MD Nov 11, 2019 13:03
[2019-11-11 14:00] VITALS: BP 123/81
--- NOTE | 2019-11-11 20:57 | IPNPDOC ---
Date Seen The patient was seen on 11/11/19. Progress Note SUBJECTIVE: Rocio was seen and examined today while lying in bed. She continues to remain NPO until being seen by general surgery for possible workup of internal bleeding. She reports her abdominal pain is moderately improved from the previous days and she no longer feels nauseated, nor has reflux. She has yet to have a bowel movement since admission. Patient denies fever, chills, night sweats, headache, feeling lightheaded, chest pain or pressure, palpitations, shortness of breath, dysuria or hematuria at this time. OBJECTIVE PHYSICAL EXAMINATION: VITAL SIGNS: Please see below. GENERAL: Pleasant female who is well-nourished and well-developed. Patient appears to be in some moderate discomfort at times during exam, but is in no apparent acute distress of any kind. Alert and oriented 3. HEENT: Normocephalic, atraumatic. Anicteric and noninjected sclera. Mild conjunctival pallor. Trachea is midline. CARDIOVASCULAR: Regular rate, regular rhythm. S1, S2 auscultated. No murmurs or rubs appreciated. RESPIRATORY: No wheezes, crackles or rhonchi appreciated. Mildly diminished tidal volume. Symmetric chest expansion. Breathing room air and speaking in full sentences ABDOMINAL: Soft, mild distention. Tenderness of right upper quadrant, right lower quadrant, and epigastrum with localized voluntary guarding. Hypoactive bowel sounds present. Winces in discomfort throughout abdominal exam. No palpable masses appreciated. EXTREMITIES: 2+ radial and posterior tibial pulses bilaterally. No lower extremity edema. No clubbing or cyanosis. Swelling of right upper extremity from yesterday has resolved. IV is now present in left forearm. NEUROLOGICAL: Awake, alert and oriented 3. No focal neurological deficits appreciated. PSYCHOLOGICAL: Mood and affect appear appropriate LABORATORY DATA, IMAGING STUDIES, MICROBIOLOGY: Please see below. ASSESSMENT AND PLAN: This is a 49-year-old female with past medical history of hypertension, type 2 diabetes, dyslipidemia, who presented to the emergency department on 11/08 after experiencing abdominal pain earlier in the day radiating to her right side with one episode of nausea and vomiting in the emergency department. In the emergency department she was found to have neutrophil predominant leukocytosis with microcytic hypochromic anemia and thrombocytopenia. CT abdomen and pelvis showed small bowel edema and wall thickening with a moderate amount of ascites and hepatic steatosis. There was no small bowel obstruction or signs of ischemia. Patient was admitted under the care of the hospitalist service. Patient continued to have epigastric and right abdominal tenderness, mild distention, nausea and reflux through 11/09 and 11/10. White blood cell count and platelet count returned to normal limits on 11/10. Patient tolerated clear liquid diet well on 11/09. Critical drop to hemoglobin in the upper sevens on 11/[address] abdomen and pelvis with IV contrast that showed a little less ascites in the abdomen and pelvis as compared to the 11/08 study. Mural thickening was still seen of the small bowel, but was somewhat improved from 11/08 study. Uterus was markedly enlarged to 14 cm with a 5 cm fibroid. Repeat H&H's remained around 8 on 11/10. Patient had no significant history that would explain acute drop in hemoglobin. Coagulation studies, LDH, reticulocyte count and peripheral smear ordered on 11/10. Consultation placed with general surgery to evaluate for possible internal bleeding on 11/10. Patient made NPO for general surgery consultation. General surgery saw patient on 11/11 and does not feel surgical intervention is warranted at this time as intra-abdominal/intrapelvic fluid is likely result of third spacing secondary to active viral associated inflammation and not bleeding. Patient's pain improved on 11/11 and she was subsequent restarted back on soft diet. #Ascites likely secondary to ileitis/enteritis -Patient continues to have slight distention on exam, but her abdominal tenderness and pain is improved from previous days. She no longer feels nauseated, nor does she have heartburn. She has still yet to have a bowel movement since admission. -Day 4 of ciprofloxacin and metronidazole -After being seen by general surgery on 11/11, and with surgical intervention not warranted at this time, patient subsequently resumed soft diet -Patient is on dairy restrictions -prn Zofran and dicyclomine -prn morphine for pain #Microcytic hypochromic anemia -No prior history and system to compare to baseline -Hemoglobin has remained stable around 8. At this point, we will continue to follow H&H and if on morning labs for 11/12 hemoglobin remains stable, this will lilly 48 hours of stability. At that point, patient likely can be discharged with continued pain improvement. -General surgery saw patient on 11/11 and do not feel intra-abdominal/intrapelvic fluid is result of intra-abdominal bleeding, but rather third spacing from active viral associated inflammation. -Virus responsible for ileitis/enteritis may be compromising bone marrow and accounting for anemia -Patient had episode of critical anemia (Hgb around 6) 3 years ago after heavy menses, received 2 units blood. #Type 2 diabetes: -Home oral diabetes medications held -Continue with sliding scale insulin ac hs #Hypertension: -Well-controlled; continue with home lisinopril #GI prophylaxis: Protonix IV #DVT prophylaxis: Lovenox sc discontinued today after continued drop in Hgb DISPOSITION: Likely discharge tomorrow (11/12) pending continued pain improvement and stable hemoglobin on morning labs that would show 48 hours of stability. VS, I&O, 24H, Fishbone Vital Signs/I&O Vital Signs Date Time Temp Pulse Resp B/P (MAP) Pulse Ox O2 Delivery O2 Flow Rate FiO2 11/11/19 14:00 98.8 82 16 123/81 (95) 98 Room Air I&O- Last 24 Hours up to 6 AM 11/11/19 06:00 Intake Total 0 ml Balance 0 ml Laboratory Data 24H LABS Laboratory Tests 2 11/10/19 20:43: Bedside Glucose (Misc Panel) 89 11/11/19 06:12: Immature Granulocyte % (Auto) 0.4, Neutrophils (%) (Auto) 62.7, Lymphocytes (%) (Auto) 26.5, Monocytes (%) (Auto) 8.0H, Eosinophils (%) (Auto) 2.0, Basophils (% ) (Auto) 0.4, Neutrophils # (Auto) 5.8, Lymphocytes # (Auto) 2.4, Monocytes # (Auto) 0.7, Eosinophils # (Auto) 0.2, Basophils # (Auto) 0.0, Nucleated Red Blood Cells % (auto) 0.0, Anion Gap 8, Glomerular Filtration Rate > 60.0, Calcium Level 8.5, Magnesium Level 1.9, Iron Level 14L, Total Iron Binding Capacity 421, Transferrin % Saturation 3.3L, Ferritin 8, Total Bilirubin 0.3, Aspartate Amino Transf (AST/SGOT) 13, Alanine Aminotransferase (ALT/SGPT) 11L, Alkaline Phosphatase 63, Total Protein 6.8, Albumin 2.9L, Albumin/Globulin Ratio 0.74L 11/11/19 11:38: Bedside Glucose (Misc Panel) 96 1/18/20 17:03: Bedside Glucose (Misc Panel) 146H CBC/BMP Laboratory Tests 11/10/19 21:45 11/11/19 06:12 Microbiology Microbiology 11/09/19 Blood Culture - Preliminary, Resulted No Growth after 48 hours. All Specime... 11/09/19 Blood Culture - Preliminary, Resulted No Growth after 48 hours. All Specime... CARLOS PEREZ D.O. Nov 11, 2019 20:57
[2019-11-11 22:00] VITALS: BP 121/80
[2019-11-11] MEDS: PANTOPRAZOLE 40MG INJ (PROTONIX) (C9113) IV SCH (23:58)
[2019-11-12] MEDS: metroNIDAZOLE 500 MG in IV 1 EA IV SCH ×2 (02:35→09:29)
[2019-11-12 06:00] VITALS: BP 120/78
[2019-11-12 07:06] LABS: BASO # 0.1 10^3/uL (0.0-0.2); BASO % 0.6 % (0.0-1.0); EOS # 0.1 10^3/uL (0.0-0.5); EOS % 1.7 % (0.0-3.0); HEMATOCRIT 26.1 % (36.0-47.0); HEMOGLOBIN 7.4 g/dl (12.0-15.5); LYMPH # 2.2 10^3/uL (1.5-5.0); LYMPH % 27.1 % (24.0-44.0); MEAN CORPUSCULAR HEMOGLOBIN 19.1 pg (27.0-33.0); MEAN CORPUSCULAR HGB CONC 28.4 g/dl (32.0-36.5); MEAN CORPUSCULAR VOLUME 67.3 fl (80.0-96.0); MONO # 0.6 10^3/uL (0.0-0.8); MONO % 7.9 % (0.0-5.0); NEUTROPHILS % 62.3 % (36.0-66.0); PLATELET COUNT, AUTOMATED 391 10^3/uL (150-450); RED BLOOD COUNT 3.88 10^6/uL (4.00-5.40)
[2019-11-12] MEDS: HumaLOG INSULIN (NovoLOG) PER UNIT SC SCH ×2 (07:30→13:14)
[2019-11-12 07:34] LABS: ALBUMIN 2.7 GM/DL (3.2-5.2); ALT/SGPT 20 U/L (12-78); BILIRUBIN,TOTAL 0.2 MG/DL (0.2-1.0); BLOOD UREA NITROGEN 11 MG/DL (7-18); CARBON DIOXIDE LEVEL 23 MEQ/L (21-32); CHLORIDE LEVEL 109 MEQ/L (98-107); CREATININE FOR GFR 0.61 MG/DL (0.55-1.30); GLOMERULAR FILTRATION RATE > 60.0 (>58); GLUCOSE, FASTING 123 MG/DL (70-100); SODIUM LEVEL 139 MEQ/L (136-145); TOTAL PROTEIN 6.1 GM/DL (6.4-8.2)
[2019-11-12] MEDS ORDERED: POLYETHYLENE GLYCOL (MIRALAX) 238GM BOTTLE PO ONE (08:15)
[2019-11-12] MEDS ORDERED: IRON POLYSAC (NIFEREX) 150 MG CAP PO SCH (09:00)
[2019-11-12] MEDS: ENOXAPARIN 40 MG/0.4 ML SYRINGE (J1650) SC SCH (09:29)
[2019-11-12 09:30] VITALS: BP 120/78
[2019-11-12] MEDS: lisinopriL 10 MG TAB PO SCH (09:30)
[2019-11-12] MEDS: DICYCLOMINE 10 MG CAP PO PRN (10:50)
[2019-11-12] MEDS ORDERED: FLAG500T PO ×2 (14:04→15:42)
[2019-11-12] MEDS ORDERED: FERR325T3 PO ×2 (14:04→15:42)
--- NOTE | 2019-11-12 14:08 | DS.PDOC ---
Discharge Summary General Date of Admission Nov 09, 2019 at 00:20 Date of Discharge November 12 2019 Attending Physician: XENA GASPAR MD Discharge Summary TIME OF SERVICE 10:17 AM PROCEDURES PERFORMED DURING STAY: [None]. ADMITTING DIAGNOSES: Abdominal pain, nausea, vomiting, possibly due to enteritis. Ascites, possibly due to enteritis. Leukocytosis. Reactive thrombocytosis. Normocytic normochromic anemia. Chronic hypertension. NIDDM. Dyslipidemia. DISCHARGE DIAGNOSES: Iron deficiency anemia, likely due to fibroids and heavy menses Abdominal pain, nausea, vomiting, possibly due to enteritis/ ascites - resolved Ascites, possibly due to enteritis - resolving Leukocytosis - resolved Reactive thrombocytosis.- resolved Chronic hypertension. NIDDM. Dyslipidemia Hepatic steatosis COMPLICATIONS/CHIEF COMPLAINT: Ascites, Enteritis. HISTORY OF PRESENT ILLNESS: Per HPI "Patient is a 49-year-old female with a PMHx of HTN, NIDDM2, DLP who presented to the ER with complaints of abdominal pain. Patient reported that her abdominal pain started at noon. . She describes her pain occurring in the middle of her abdomen, 10/10, sharp, radiating to the right side and occurring intermittently. Patient had attempted to alleviate her pain with some yogurt and a banana, as she thought it was related to heartburn, however this did not change the intensity of pain. Patient denies any aggravating factors. She has not experienced any fevers or chills over the last 2 weeks. She did report an episode of nausea and vomiting that occurred once while she was in the emergency room. She described the vomitus as light-colored without any blood. Patient denies any diarrhea or constipation and has reported a formed bowel movement that occurred at 4 PM. Patient denies experiencing any urinary discomfort. Patient denies any chest pain, shortness breath, palpitations or cough." HOSPITAL COURSE: Based on CT of the abdomen. She was diagnosed with ascites, likely due to ileitis and enteritis; she was started on antibiotics. Repeat CT of abdomen with contrast confirmed thickening of the small bowel and a fibroid uterus. Due to the suspicion that she may have intra-abdominal bleeding. General surgeon, Dr. Baires was consulted he felt that surgical intervention was not warranted and that the fluid in the abdomen was likely due to third spacing. Stool occult was negative, but the patient confirmed having heavy menses the past. Her TSH was within normal limits Per discussion with Dr. Luther instrument maker. The patient can follow up with her outpatient basis. The patient was instructed to take antibiotics for 2 more days; we explained the reason for her anemia to her and instructed her to start taking oral iron sulfate and follow up with Dr. Luther on an outpatient basis. DISCHARGE MEDICATIONS: Please see below. ALLERGIES: Please see below. PHYSICAL EXAMINATION ON DISCHARGE: VITAL SIGNS: Please see below. GENERAL: Well-nourished, well-developed, not in apparent distress HEENT: Normocephalic, atraumatic. Mucous membranes and moist and pink CARDIOVASCULAR EXAMINATION: Rate and rhythm. No murmurs, rubs or gallops RESPIRATORY EXAMINATION: Clear to auscultation bilaterally on room air NEUROLOGICAL EXAMINATION: In 2-12 grossly intact. Speech is not dysarthric PSYCHIATRIC EXAMINATION: Alert and oriented to person, place and time, able to understand and follow commands LABORATORY DATA: Please see below. IMAGING: See EMR PROGNOSIS: Fair ACTIVITY: [As tolerated]. DIET: Regular DISCHARGE PLAN: See above DISPOSITION: . DISCHARGE INSTRUCTIONS: 1. Follow-up with PCP within one week. 2. Follow up with Dr. Luther instrument maker 3. Take metronidazole for 2.5 more days 4. Start taking iron sulfate ITEMS TO FOLLOWUP ON ON OUTPATIENT: 1.. See above. DISCHARGE CONDITION: [Stable]. TIME SPENT ON DISCHARGE: Approximately 30 minutes minutes. Vital Signs/I&Os Vital Signs Date Time Temp Pulse Resp B/P (MAP) Pulse Ox O2 Delivery O2 Flow Rate FiO2 11/12/19 09:30 120/78 11/12/19 06:00 97.5 77 16 97 Room Air I&O- Last 24 Hours up to 6 AM 11/12/19 05:59 Intake Total 540 ml Balance 540 ml Laboratory Data Labs 24H Laboratory Tests 2 11/11/19 17:03: Bedside Glucose (Misc Panel) 146H 11/11/19 20:45: Bedside Glucose (Misc Panel) 125H 11/12/19 06:45: Immature Granulocyte % (Auto) 0.4, Neutrophils (%) (Auto) 62.3, Lymphocytes (%) (Auto) 27.1, Monocytes (%) (Auto) 7.9H, Eosinophils (%) (Auto) 1.7, Basophils (%) (Auto) 0.6, Neutrophils # (Auto) 5.0, Lymphocytes # (Auto) 2.2, Monocytes # (Auto) 0.6, Eosinophils # (Auto) 0.1, Basophils # (Auto) 0.1, Nucleated Red Bloo d Cells % (auto) 0.0, Anion Gap 7L, Glomerular Filtration Rate > 60.0, Calcium Level 8.0L, Magnesium Level 2.0, Total Bilirubin 0.2, Aspartate Amino Transf (AST/SGOT) 31, Alanine Aminotransferase (ALT/SGPT) 20, Alkaline Phosphatase 60, Total Protein 6.1L, Albumin 2.7L, Albumin/Globulin Ratio 0.79L, Thyroid Stimulating Hormone (TSH) 1.060 11/12/19 12:11: Bedside Glucose (Misc Panel) 202H CBC/BMP Laboratory Tests 11/12/19 06:45 11/12/19 12:02 FSBS Laboratory Tests Test 11/11/19 17:03 11/11/19 20:45 11/12/19 12:11 Range/Units Bedside Glucose (Misc Panel) 146 125 202 70-105 MG/DL Microbiology Microbiology 11/12/19 Stool Occult Blood ([facility]) - Final, Complete 11/09/19 Blood Culture - Preliminary, Resulted No Growth after 72 hours. All specime... 11/09/19 Blood Culture - Preliminary, Resulted No Growth after 72 hours. All specime... Discharge Medications Scheduled Ferrous Sulfate (Ferrous Sulfate) 325 Mg Tablet.dr, 1 TAB PO DAILY Glipizide (Glipizide) 5 Mg Tablet, 5 MG PO DAILY, (Reported) Lisinopril (Lisinopril) 10 Mg Tablet, 10 MG PO DAILY, (Reported) Metronidazole (Flagyl) 500 Mg Tablet, 500 MG PO Q6H Sitagliptin Phosphate (Januvia) 100 Mg Tablet, 100 MG PO DAILY, (Reported) Allergies Coded Allergies: No Known Allergies (Unverified , 11/08/19) XENA GASPAR MD Nov 12, 2019 14:08
[2019-11-12] MEDS ORDERED: ZOFR4TAB16 PO (15:42)
[2019-11-12] MEDS ORDERED: metroNIDAZOLE (FLAGYL) 500 MG TAB PO SCH (18:00)
[2019-11-14 14:07] LABS: Chitobioside Carbohydrat (ACCA 34 units (0-90); Laminaribioside Carbohyd (ALCA 10 units (0-60); Mannobioside Carbohydrat (AMCA 43 units (0-100); Saccharomyces cerevisiae IgG A 11 units (0-50)
== END 2019-11-12 16:20 | disposition home or self-care (01) | DRG 812 ==
LOC: M ED 19:15 → EDBD 19:15 → M ED INP 11-09 00:20 → ENRESERV 11-09 00:37 → M PCU 11-09 01:39 → M MS5PR 11-09 16:00
PROVIDERS: ADMIT Internal Medicine; ATTEND Internal Medicine
DX: D50.0 Iron deficiency anemia secondary to blood loss (chronic) (principal); R18.8 Other ascites; K56.7 Ileus, unspecified; K52.9 Noninfective gastroenteritis and colitis, unspecified; R10.9 Unspecified abdominal pain; I10 Essential (primary) hypertension; E11.9 Type 2 diabetes mellitus without complications; E78.5 Hyperlipidemia, unspecified; Z79.899 Other long term (current) drug therapy; D72.829 Elevated white blood cell count, unspecified; D47.3 Essential (hemorrhagic) thrombocythemia; K76.0 Fatty (change of) liver, not elsewhere classified; N83.202 Unspecified ovarian cyst, left side

== ENCOUNTER → 2019-12-26 | Outpatient (CLI) | payer OTHER ==
[~2019-12-26] MED LIST: FERR325T3 PO; FLAG500T PO; GLIP5TAB8 PO; JANU100T PO; JANU100T14 PO; LISI10TA4 PO; ZOFR4TAB16 PO
--- NOTE | 2019-12-26 10:25 | REPMRS ---
Patient History The patient states she has not had a clinical breast exam in over a year. Family history of prostate cancer in maternal grandfather. Digital Woman Screen Mammo: December 26, 2019 - Exam #: [id number] Bilateral CC and MLO view(s) were taken. Technologist: June Crowley, Technologist No prior studies available for comparison. FINDINGS: There are scattered fibroglandular densities. There is a grouping of polymorphic microcalcifications in the left lateral mid breast which merits further evaluation. There is no other evidence of dominant mass, architectural distortion, or grouped microcalcification typical of malignancy. 3-D tomosynthesis shows no additional findings. Assessment: BI-RADS/ACR category 0 mammogram, Incomplete: Need additional imaging evaluation and/or prior mammograms for comparison. Recommendation Special view mammogram of the left breast. This patient's Lifetime Breast Cancer RIsk is estimated at 11.5 %. This mammogram was interpreted with the aid of an FDA-approved computer-aided dectection system. Electronically Signed By: Ricki Keith MD 12/26/19 [id number]
== END ==
LOC: M WHC 08:52
PROVIDERS: ATTEND Family Medicine
DX: Z12.31 Encounter for screening mammogram for malignant neoplasm of breast (principal)

== ENCOUNTER → 2020-01-18 | Outpatient (CLI) | payer OTHER ==
--- NOTE | 2020-01-18 09:33 | REP ---
DIAGNOSTIC MAMMOGRAM LEFT BREAST: Magnification views of the left breast performed and correlated with a recent mammogram 12/26/2019. The magnification views confirm the evidence of cluster of pleomorphic microcalcifications in the upper outer quadrant of the left breast. Stereotactic biopsy is recommended. IMPRESSION: ACR 4 suspicious. Clustered of pleomorphic microcalcifications in the upper outer quadrant of the left breast. Recommend stereotactic biopsy with postprocedure mammography. Patient letter requested M4.
== END ==
LOC: M WHC 08:41
PROVIDERS: ATTEND Family Medicine
DX: Z12.31 Encounter for screening mammogram for malignant neoplasm of breast (principal); R92.0 Mammographic microcalcification found on diagnostic imaging of breast

== ENCOUNTER 2020-12-10 09:00 | Day surgery (SDC) | payer OTHER ==
[~2020-12-10] VITALS: Ht 160 cm; Wt 70.3 kg
[~2020-12-10 09:00] MED LIST changes: +LISI10TA22 PO; -LISI10TA4 PO; +NS 1,000 ML IV ONE; +OMEP-221 PO; +VITA500T9 PO
[2020-12-10] MEDS ORDERED: LIDOCAINE 2% 100MG/5ML SDV (FOR ANES.) As Ordered ONE (09:10)
[2020-12-10] MEDS ORDERED: fentaNYL 100 MCG/2 ML INJECTION (J3010) As Ordered ONE (09:10)
[2020-12-10] MEDS ORDERED: propofoL 200 MG/20 ML VIAL As Ordered ONE (09:10)
--- OUTSIDE RECORDS SUMMARY | 2020-12-10 09:13 | CCD ---
Author Author [facility] Organization [facility] Address Unknown Phone Unavailable Care Team Providers Care Templer Head Name Role Phone RENNeftali CRUZ Unavailable Unavailable Lacho Mcconnell MD Unavailable Unavailable Lacho Mcconnell MD Unavailable Unavailable Lacho Mcconnell MD Unavailable Unavailable Lacho Mcconnell MD Unavailable Unavailable Lacho Mcconnell MD Unavailable Unavailable Lacho Mcconnell MD Unavailable Unavailable Lacho Mcconnell MD Unavailable Unavailable Lacho Mcconnell MD Unavailable Unavailable Lacho Mcconnell MD Unavailable Unavailable Lacho Mcconnell MD Unavailable Unavailable Lacho Mcconnell MD Unavailable Unavailable Lacho Mcconnell MD Unavailable Unavailable Lacho Mcconnell MD Unavailable Unavailable Lacho Mcconnell MD Unavailable Unavailable Lacho Mcconnell MD Unavailable Unavailable Lacho Mcconnell MD Unavailable Unavailable Lacho Mcconnell MD Unavailable Unavailable Lacho Mcconnell MD Unavailable Unavailable Lacho Mcconnell MD Unavailable Unavailable Lacho Mcconnell MD Unavailable Unavailable Lacho Mcconnell MD Unavailable Unavailable Lacho Mcconnell MD Unavailable Unavailable Lacho Mcconnell MD Unavailable Unavailable Lacho Mcconnell MD Unavailable Unavailable Lacho Mcconnell MD Unavailable Unavailable Lacho Mcconnell MD Unavailable Unavailable Lacho Mcconnell MD Unavailable Unavailable Lacho Mcconnell MD Unavailable Unavailable Lacho Mcconnell MD Unavailable Unavailable Lacho Mcconnell MD Unavailable Unavailable Lacho Mcconnell MD Unavailable Unavailable Enedina, S Isaías MD Unavailable Unavailable Enedina, S Isaías MD Unavailable Unavailable Enedina, S Isaías MD Unavailable Unavailable Enedina, S Isaías MD Unavailable Unavailable Enedina, S Isaías MD Unavailable Unavailable Enedina, S Isaías MD Unavailable Unavailable Enedina, S Isaías MD Unavailable Unavailable Enedina, S Isaías MD Unavailable Unavailable Enedina, S Isaías MD Unavailable Unavailable Enedina, S Isaías MD Unavailable Unavailable Enedina, S Isaías MD Unavailable Unavailable Enedina, S Isaías MD Unavailable Unavailable Enedina, S Isaías MD Unavailable Unavailable Enedina, S Isaías MD Unavailable Unavailable Enedina, S Isaías MD Unavailable Unavailable Enedina, S Isaías MD Unavailable Unavailable Enedina, S Isaías MD Unavailable Unavailable Enedina, S Isaías MD Unavailable Unavailable Enedina, S Isaías MD Unavailable Unavailable Re-disclosure Warning The records that you are about to access may contain information from federally-assisted alcohol or drug abuse programs. If such information is present, then the following federally mandated warning applies: This information has been disclosed to you from records protected by federal confidentiality rules (42 CFR part 2). The federal rules prohibit you from making any further disclosure of this information unless further disclosure is expressly permitted by the written consent of the person to whom it pertains or as otherwise permitted by 42 CFR part 2. A general authorization for the release of medical or other information is NOT sufficient for this purpose. The Federal rules restrict any use of the information to criminally investigate or prosecute any alcohol or drug abuse patient.The records that you are about to access may contain highly sensitive health information, the redisclosure of which is protected by Article 27-F of the [facility] Public Health law. If you continue you may have access to information: Regarding HIV / AIDS; Provided by facilities licensed or operated by the [facility] Office of Mental Health; or Provided by the [facility] Office for People With Developmental Disabilities. If such information is present, then the following [facility] mandated warning applies: This information has been disclosed to you from confidential records which are protected by state law. State law prohibits you from making any further disclosure of this information without the specific written consent of the person to whom it pertains, or as otherwise permitted by law. Any unauthorized further disclosure in violation of state law may result in a fine or residential sentence or both. A general authorization for the release of medical or other information is NOT sufficient authorization for further disc losure. Encounters Encounter Providers Location Date Indications Data Source(s ) Office Visit Attender: Isaías Mcconnell MD Main Office 09:30:00 AM EST [facility] ([facility] ) Emergency Attender: JAMILAH BUSTILLOROLAN 10:49:00 AM EST - 10/21/2020 01:46:00 PM [facility] Patient discharged. Outpatient 12/28/2019 02:26:00 PM EST [facility] Imaging Outpatient 11/16/2019 01:49:00 PM EST [facility] [address] [place] [id number] 11/08/2019 12:00:00 AM EST eCW1 ([facility]) Medications Medication Brand Name Start Date Product Form Dose Route Admi nistrative Instructions Pharmacy Instructions Status Indications Reaction Description Data Source(s) Suprep Bowel Prep Kit Suprep Bowel Prep Kit 11/26/2020 12:00:00 AM EST active [facility] ([facility]) Insurance Providers Payer name Policy type / Coverage type Policy ID Covered alliance party ID Covered alliance party's relationship to reyna Policy Reyna Plan Information [facility] [id number] [facility] [id number] [facility] - O/P [id number] 01 [id number] [employer] [id number] [facility] [id number] [facility] O [id number] S [id number] Problems, Conditions, and Diagnoses Code Display Name Description Problem Type Effective Dates Data Source(s) 351289609 Anemia Anemia Problem 11/26/2020 12:00:00 AM ES T [facility] ([facility]) [id number] Personal history of urinary calculi Personal his tory of urinary calculi Diagnosis 10/21/2020 10:49:00 AM [facility] E119 Type 2 diabetes mellitus without complic ations Type 2 diabetes mellitus without complications Diagnosis 10/21/2020 10:49:00 AM [facility] N3001 Acute cystitis with hematuria Acute cystitis with hanna turia Diagnosis 10/21/2020 10:49:00 AM [facility] N132 Hydronephrosis with renal and ureteral c alculous obstruction Hydronephrosis with renal and ureteral calculous obstruction Diagnosis 10/21/20 10:49:00 AM [facility] R109 Unspecified abdominal pain Unspecified abdominal pain Diagnosis 10/21/2020 10:49:00 AM [facility] Results ID Date Data Source [id number] 10/23/2020 10:49:00 AM [facility] [address] [place] [address] PHONE: [phone] FAX: [phone] Name .................. : LEONCIO Monk Acct Number.................. : [id number] ROOM. ................. : TR-07 Number ................... : [id number] Stay type ............. : E/R Discharge Date......... ... : Admit Date ......... : 1 12/22/19 [facility] .................... [facility] Date of ....... : 1970 Family Phys ................... : UNKNOWN Phone .................. : [phone] Age ................................ : 50 Film# .................. .:[id number] Sex ................................. : F Unsigned transcriptions are preliminary reports and do not represent a medical or legal document CT ABD & PELV W/[place] OR[place] W/[place] [address] COMPLETE:10/21/20 12:05 ARS 1018 Reason(s): Abdominal Pain CT SCAN OF THE ABDOMEN/PELVIS WITHOUT IV CONTRAST, 10/21/20: INDICATION: Abdominal pain. FINDINGS: Lung bases are clear. No focal infiltrate or consolidation is identified. Heart appears unremarkable. Liver, pancreas, gallbladder, spleen, adrenal glands, and right kidney all appear unremarkable. Left kidney demonstrates a large calculus in the renal pelvis which is obstructing the kidney and resulting in moderate hydronephrosis. Calculus measures approximately 2.2 x 1.2 cm in size. Uterus appears enlarged and measures 12.3 x 7.9 cm in size. The appendix is not discretely visualized. No free fluid is identified in the pelvis. Osseous structures show degenerative changes. IMPRESSION: Moderate left-sided hydronephrosis secondary to a large calculus at the renal pelvis measuring 2.2 x 1.2 cm in size. While performing the above CT examination, radiation dose reduction was accomplished utilizing automated exposure control, adjusting of the mA and kV based on the patient's body size and/or the use of imperative reconstructive techniques. CT dose 673.9 mGycm. Examination dictated by TYRONE Vargas. Examination was reviewed with Belinda Horowitz MD, radiologist at the time of this dictation. Electronically Reviewed and Signed By [address] [place] [address] PHONE: [phone] FAX: [phone] Name .................. : LEONCIO Monk Acct Number.................. : [id number] ROOM. ....... .......... : TR-07 MR Number ................... : [id number] Stay type ............. : E/R Discharge Date......... ... : Admit Date ......... : 10/21/20 Admit Phys .................... : MATTY Date of ....... : 1970 Family Phys ................... : UNKNOWN Phone .................. : [phone] Age ................................ : 50 Film# .................. .:[id number] Sex ................................. : F Unsigned transcriptions are preliminary reports and do not represent a medical or legal document CT ABD & PELV W/[place] ORAL W/[place] [address] COMPLETE:10/21/20 12:05 ARS 1018 Reason(s): Abdominal Pain Belinda Horowitz MD , 10/23/20 10:49, KGG Transcribe Initials: SSR, Transcribe Date: 10/21/20 12:12, Dictation Date: Copy for: MART BROOKS via fax Copy for: EMERGENCY DEPT via modem Copy for: 710 MED REC DISCHARGED Page 2 of 2 Name Value Range Interpretation Code Description Data Elle rce(s) Supporting Document(s) ID Date Data Source [id number] 10/21/2020 10:49:00 AM EST [facility] 1 OrderSheet [facility] [address] [place] [address] Phone #: ext- [phone] 10/21/2020 10:32 Patient: ANA FANG Sex: F : 1970 Age: 50yWEIGHT:72.5 kg (S) HEIGHT:63 inches (S) BMI:28.3ALLERGIES: NoneCHIEF COMPLAINT: abd pain, Lt, flank painDIAGNOSIS: Urinary tract infectious disease, Kidney stoneLAB ORDERSOrder Description Priority Entered Acknowledged InitialedUrinalysis (Clean STAT 10:49 10/21/2020 10:50 Joseph Royal) Chey Royal R.N.; R.N. Verbal order per; ClarissaJamilah [facility] w Diff STAT 10:58 10/21/2020 10:58 Joshua Welsh RN PA;CMP STAT 10:58 10/21/2020 10:58 Joshua Welsh RN PA;Lipase STAT 10:58 10/21/2020 10:58 Joshua Welsh RN PA;Lactic Acid STAT 10:58 10/21/2020 10:58 Joshua Welsh RN PA;DIAGNOSTIC STUDY ORDERSOrder Description Priority Entered Acknowledged InitialedCT ABD PEL W/O STAT 10:58 10/21/2020 11:14 PeterOral W/O IV Johnny Welsh RNContrast PA;(Oxygen?(No))(IV?(Yes)) NOTES: Left Flank Pain, h/o kidney stone Reason for Study: Abdominal PainMEDI CATION/IV/DRIP/FLUID ORDERSOrder Description Priority Entered Acknowledged InitialedNS IV : Bolus 1000 10:58 10/21/2020 11:19 Sony, then 150 mL/hr Johnny Welsh RN 2 OrderSheet [facility] [address] [place] [address] Phone #: ext- [phone] 10/21/2020 10:32 Patient: ANA FANG Sex: F : 1970 Age: 50y PA;Toradol IVP 30 mg 10:58 10/21/2020 11:20 Joshua Welsh RN PA;Zofran IVP 8 mg 10:58 10/21/2020 11:20 Joshua Welsh RN PA;Rocephin 11:26 10/21/2020 11:32 Joshua(1gm/50mL) IVPB Johnny Welsh OK1004 mg with PA;Dextrose 50 mlspike bag (D5W)Morphine IVP 4 mg 12:31 10/21/2020 Cancelled: Physician Order 12:34 Johnny(HIGH ALERT Johnny Ash PAMEDICATION) PA;GENERAL ORDERSOrder Description Priority Entered Acknowledged InitialedNPO 10:58 10/21/2020 10:58 Joshua Welsh RN PA;Saline Lock 10:58 10/21/2020 11:19 Joshua Welsh RN PA;[Electronically signed by Joshua Welsh RN (13:46 10/21/2020)][Electronically signed by Johnny Ash (21:53 10/21/2020)][Electronically locked by Joshua Welsh RN (13:46 10/21/2020)] Name Value Range Interpretation Code Description Data Elle rce(s) Supporting Document(s) ID Date Data Source [id number] 10/21/2020 10:49:00 AM EST [facility] 1 Medication Reconciliation Report [facility] Department [address] [place] [address] Phone #: ext- [phone] 10/21/2020 10:32 Patient: ANA FANG Sex: F : 1970 Age: 50yWeight: 72.5 kgHeight/Length: 63 in.BMI: 28.3ALLERGIES: NoneThe patient's Home Medications are listed below:CONTINUE TAKING THE FOLLOWING MEDICATIONS: glipiZIDE Oral (5 mg), daily Januvia Oral (100 mg), daily Januvia Oral PriLOSEC Oral 40 mg, daily Zestril Oral (10 mg), dailyThe source(s) of the original Home Medication information:Not obtained.The following Medications were given to the patient in the Emergency Department:NS [IV] IV Fluids bolus 0, then 1000 mL/hr, administered: 11:19 10/21/2020Toradol [IVP] IVP 30 mg, administered: 11:20 10/21/2020Zofran [IVP] IVP 8 mg, administered: 11:20 10/21/2020ROCEPHIN (1GM/50ML) [IVPB] IVPB bolus 0, then 1 gm 100 mL/hr, administered: 11:32 10/21/2020The following Medications were prescribed to the patient:Flomax 0.4 mg capsule Take 1 capsule at bedtime for 30 days -- Dispense 30 capsule. Refills: 0.Substitution permitted.Pharmacy - [facility] [employer] [address] ; [place] [address]. Phone: . 2 Medication Reconciliation Report [facility] Department [address] [place] [address] Phone #: ext- [phone] 10/21/2020 10:32 Patient: ANA FANG Sex: F : 1970 Age: 50ycefdinir 300 mg capsule Take 1 capsule twice a day for 7 days -- Dispense 14 capsule. Refills: 0.Substitution permitted.Pharmacy - [facility] [employer] ; [place] [address]. .ibuprofen 800 mg tablet Take 1 tablet three times a day for 15 days -- Dispense 45 tablet. Refills: 0.Substitution permitted.Pharmacy - [facility] [employer] [address] ; [place] [address]. . -- TYRONE Bryant Name Value Range Interpretation Code Description Data Elle rce(s) Supporting Document(s) ID Date Data Source [id number] 10/21/2020 10:49:00 AM EST [facility] 1 Medication Administration Record [facility] [address] [place] [address] Phone #: ext- [phone] 10/21/2020 10:32 Patient: ANA FANG Sex: F : 1970 Age: 50yWeight: 72.5 kgHeight/Length: 63 inBMI: 28.3ALLERGIES: None Date/Time Medication Administered Medication OrderedStart NS [IV] NS IV : Bolus 1000 mL, then 65014:19 10/21/2020 Dose: IV Fluids mL/Rosie Welsh RN Rate: 1000 mL/hr over 1 hour(s)---- Dispensed: 1000 mL bagStop Site: #1 left AC12:48 10/21/2020Joshua Welsh RNGiven TORADOL [IVP] (KETOROLAC Toradol IVP 30 mg11:20 10/21/2020 TROMETHAMINE)Joshua Welsh RN Dose: 30 mg IVP Site: #1 left ACGiven ZOFRAN [IVP] (ONDANSETRON HCL) Zofran IVP 8 mg11:20 10/21/2020 Dose: 8 mg IVPPzachary Welsh RN Site: #1 left ACStart ROCEPHIN (1GM/50ML) [IVPB] Rocephin (1gm/50mL) IVPB 705907:32 10/21/2020 (CEFTRIAXONE SODIUM) mg with Dextrose 50 ml spike Jaime Welsh RN Dose: 1 gm IVPB (D5W)---- Rate: 100 mL/hr over 30 minute(s)Stop Dispensed: 50 mL bag12:23 10/21/2020 Site: #1 left Victor Hugo Welsh RN Name Value Range Interpretation Code Description Data Elle magana(s) Supporting Document(s) ID Date Data Source [id number] 10/21/2020 10:49:00 AM EST [facility] 1 General Instructions [facility] [address] [place] [address] Phone #: ext- [phone] 10/21/2020 10:32 Patient: ANA FANG Sex: F : 1970 Age: 50yLeft nephrolithiasis with renal colic and urinary tract infection.Acute urinary tract infection with cystitis and hematuria.INSTRUCTIONSWarnings: GENERAL WARNINGS: Return or contact your physician immediately if your conditionworsens or changes unexpectedly, if not improving as expected, or if other problems arise. Specificallyreturn if pain or fever not controlled by acetaminophen or ibuprofen worsens.Your Current Medications: Your current home medications have been reviewed.CONTINUE TAKING THE FOLLOWING MEDICATIONS:glipiZIDE Oral : Tablet 5 mg, daily.Januvia Oral : Tablet 100 mg, daily.Januvia Oral.PriLOSEC Oral : 40 mg daily.Zestril Oral : Tablet 10 mg, leia ly.Prescription Medications:Flomax 0.4 mg capsule Take 1 capsule at bedtime for 30 days -- Dispense 30 capsule. Refills: 0.Substitution permitted.[facility] ; [place] [address]. Phone: .cefdinir 300 mg capsule Take 1 capsule twice a day for 7 days -- Dispense 14 capsule. Refills: 0.Substitution permitted.[facility] - [facility] [employer] [address] ; [place] [address]. .ibuprofen 800 mg tablet Take 1 tablet three times a day for 15 days -- Dispense 45 tablet. Refills: 0.Substitution permitted.Pharmacy - [facility] - [address] ; [place] [address]. FaxNumber: [phone].Understanding of the discharge instructions verbalized by patient.Follow-up with: Ubaldo Ramsay M.D., Urology, , [address] [place] [address], [id number] Follow up. Call for the next available appointment. Reason for referral: evaluation and treatment.Summary of care provided to patient. 2 General Instructions [facility] [address] [place] [address] Phone #: ext- [phone] 10/21/2020 10:32 Patient: ANA FANG Sex: F : 1970 Age: 50y ADDITIONAL INFORMATIONBladder Infection, Female (Adult)Urine normally doesn't have any germs (bacteria) in it. But bacteria can get into the urinary tract fromthe skin around the rectum. Or they can travel in the blood from other parts of the body. Once theyare in your urinary tract, they can cause infection in these areas: The urethra (urethritis) The bladder (cystitis) The kidneys (pyelonephritis)The most common place for an infection is in the bladder. This is called a bladder infection. This isone of the most common infections in women. Most bladder infections are easily treated. They arenot serious unless the infection spreads to the kidney.The terms bladder infection, UTI, and cystitis are often used to describe the same thing. But they arenot always the same. Cystitis is an inflammation of the bladder. The most common cause of cystitis isan infection.SymptomsThe infection causes inflammation in the urethra and bladder. This causes many of the symptoms. 3 General Instructions [facility] Department [address] [place] [address] Phone #: ext- [phone] 10/21/2020 10:32 Patient: ANA FANG Sex: F : 1970 Age: 50yThe most common symptoms of a bladder infection are: Pain or burning when urinating Having to urinate more often than normal Urgent need to urinate Only a small amount of urine comes out Blood in urine Belly (abdominal) discomfort. This is often in the lower belly above the pubic bone. Cloudy urine Strong- or bad-smelling urine Unable to urinate (urinary retention) Unable to hold urine in (urinary incontinence) Fever Loss of appetite Confusion (in older adults)CausesBladder infections are not contagious. You can't get one from someone else, from a toilet seat, orfrom sharing a bath.The most common cause of bladder infections is bacteria from the bowels. The bacteria get onto theskin around the opening of the urethra. From there, they can get into the urine. Then they travel up tothe bladder, causing inflammation and infection. This often happens because of: Wiping incorrectly after urin ating. Always wipe from front to back. Bowel incontinence Procedures such as having a catheter put in Older age Not emptying your bladder. This can give bacteria a chance to grow in your urine. Fluid loss (dehydration) 4 General Instructions [facility] [address] [place] [address] Phone #: ext- [phone] 10/21/2020 10:32 Patient: ANA FANG Sex: F : 1970 Age: 50y Constipation Having sex Using a diaphragm for controlTreatmentBladder infections are diagnosed by a urine test and urine culture. They are treated with antibiotics.They often clear up quickly without problems. Treatment helps prevent a more serious kidneyinfection.MedicinesMedicines can help in the treatment of a bladder infection: Take antibiotics until they are used up, even if you feel better. It's important to finish them to make sure the infection has cleared. You can use acetaminophen or ibuprofen for pain, fever, or discomfort, unless another medicine was prescribed. If you have long-term (chronic) liver or kidney disease, talk with your healthcare provider before using these medicines. Also talk with your provider if you've ever had a stomach ulcer or GI (gastrointestinal) bleeding, or are taking blood-thinner medicines. If you are given phenazopydridine to reduce burning with urination, it will make your urine a bright orange color. This can stain clothing.Care and preventionThese self-care steps can help prevent future infections: Drink plenty of fluids. This helps to prevent dehydration and flush out your bladder. Do this unless you must restrict fluids for other health reasons, or your healthcare provider told you not to. Clean yourself correctly after going to the bathroom. Wipe from front to back after using the toilet. This helps prevent the spread of bacteria. Urinate more often. Don't try to hold urine in for a long time. Wear loose-fitting clothes and cotton underwear. Don't wear tight-fitting pants. Improve your diet and prevent constipation. Eat mo re fresh fruits and vegetables, and fiber. Eat less junk foods and fatty foods. Don't have sex until your symptoms are gone. 5 General Instructions [facility] [address] [place] [address] Phone #: ext- [phone] 10/21/2020 10:32 Patient: ANA FANG Sex: F : 1970 Age: 50y Don't have caffeine, alcohol, and spicy foods. These can irritate your bladder. Urinate right after you have sex to flush out your bladder. If you use control pills and have frequent bladder infections, discuss it with your healthcare provider.Follow-up careCall your healthcare provider if all symptoms are not gone after 3 days of treatment. This is especiallyimportant if you have repeat infections.If a culture was done, you will be told if your treatment needs to be changed. If directed, you cancall to find out the results.If X-rays were done, you will be told if the results will affect your treatment.Call 911Call 911 if any of the following occur: Trouble breathing Hard to wake up or confusion Fainting (loss of consciousness) Fast heart rateWhen to get medical adviceCall your healthcare provider right away if any of these occur: Fever of 100.4F (38.0C) or higher, or as directed by your healthcare provider Symptoms are not better after 3 days of treatment Back or belly pain that gets worse Repeated vomiting, or unable to keep medicine down Weakness or dizziness Vaginal discharge Pain, redness, or swelling in the outer vaginal area (labia) [id number] [employer]. [address] [place] [address]. All rights reserved. This information is not intended as asubstitute for professional medical care. Always follow your healthcare professional's instructions. 6 General Instructions [facility] [address] [place] [address] Phone #: ext- [phone] 10/21/2020 10:32 Patient: ANA FANG Sex: F : 1970 Age: 50yKidney Stone with PainThe sharp cramping pain on either side of your lower back and nausea/vomiting that you have arebecause of a small stone that has formed in the kidney. It is now passing down a narrow tube (ureter)on its way to your bladder. Once the stone reaches your bladder, the pain will often stop. But it maycome back as the stone continues to pass out of the bladder and through the urethra. The stone maypass in your urine stream in one piece. The size may be 1/16 inch to 1/4 inch (1 mm to 6 mm). Or, thestone may break up into emerita fragments that you may not even notice.Once you have had a kidney stone, you are at risk of getting another one in the future. There are 4types of kidney stones. Eighty percent are calcium stones--mostly calcium oxalate but also somewith calcium phosphate. The other 3 types include uric acid stones, struvite stones (from a precedinginfection), and rarely, cystine stones.Most stones will pass on their own, but may take from a few hours to a few days. Sometimes thestone is too large to pass by itself. In that case, the healthcare provider will need to use other ways toremove the stone. These techniques include: Lithotripsy. This uses ultrasound waves to break up the stone. Ureteroscopy. This pushes a basket-like instrument through the urethra and bladder and into the ureter to pull out the stone. 7 General Instructions [facility] [address] [place] [address] Phone #: ext- [phone] 10/21/2020 10:32 Patient: ANA FANG Sex: F : 1970 Age: 50y Various types [facility] following are general care guidelines: Drink plenty of fluids. This means at least 12, 8-ounce glasses of fluid--mostly water--a day. Each time you urinate, do so in a jar. Pour the urine from the jar through the strainer and into the toilet. Continue doing this until 24 hours after your pain stops. By then, if there was a kidney stone, it should pass from your bladder. Some stones dissolve into sand-like particles and pass right through the strainer. In that case, you won't ever see a stone. Save any stone that you find in the strainer and bring it to your healthcare provider to look at. It may be possible to stop certain types of stones from forming. For this reason, it is important to know what kind of stone you have. Try to stay as active as possible. This will help the stone pass. Don't stay in bed unless your pain keeps you from getting up. You may notice a red, pink, or brown color to your urine. This is normal while passing a kidney stone. If you develop pain, you may take ibuprofen or naproxen for pain, unless another medicine was prescribed. If you have chronic liver or kidney disease, talk with your healthcare provider before taking these medicines. Also talk with your provider if you've had a stomach ulcer or GI bleeding.Preventing stonesEach year for the next 5 to 7 years, you are at risk that a new stone will form. Your risk is a 50%chance over this time period. The risk is higher if you have a family history of kidney stones or havecertain chronic illnesses like hypertension, obesity, or diabetes. But you can make changes to yourlifestyle and diet that can lower your risk for another stone.Most kidney stones are made of calcium. The following is advice for preventing another calciumstone. If you don't know the type of stone you have, follow this advice until the cause of your stone isfound.Things that help: The most important thing you can do is to drink plenty of fluids each day. See home care above. Eat foods that contain phytates. These include wheat, rice, rye, barley, and beans. Phytates are substances that may lower your risk for any type of stone to form. Eat more fruits and vegetables. Choose those that are high in potassium. 8 General Instructions [facility] [address] [place] [address] Phone #: ext- [phone] 10/21/2020 10:32 Patient: ANA FANG Sex: F : 1970 Age: 50y Eat foods high in natural citrate like fruit and low-sugar fruit juices. Having too little calcium in your diet can put you at risk for calcium kidney stones. Eat a normal amount of calcium in your diet and talk with your healthcare provider if you are taking calcium supplements. Cutting back on your calcium intake may raise your risk. New research shows that eating calcium-rich and oxalate-rich foods together lowers your risk for stones by binding the minerals in the stomach and intestines before they can reach the kidneys. Limit salt intake to 2 grams (1 teaspoon) per day. Use limited amounts when cooking, and don't add salt at the table. Processed and canned foods are usually high in salt. Spinach, rhubarb, peanuts, cashews, almonds, grapefruit, and grapefruit juice are all high oxalate foods. You should limit how much of these you eat. Or eat them with calcium-rich foods. These include dairy products, dark leafy greens, soy products, and calcium-enriched foods. Reducing the amount of animal meat and high protein foods in your diet may lower your risk for uric acid stones. Avoid excess sugar (sucros e) and fructose (sweetener in many soft drinks) in your diet. If you take vitamin C as a supplement, don't take more than 1,000 mg a day. A dietitian or your healthcare provider can give you information about changes in your diet that will help prevent more kidney stones from forming.Follow-up careFollow up with your healthcare provider, or as advised, if the pain lasts more than 48 hours. Talk withyour provider about urine and blood tests to find out the cause of your stone. If you had an X-ray, CTscan, or other diagnostic test, you will be told of any new findings that may affect your care.Call [phone] if you have any of these: Weakness, dizziness, or faintingWhen to seek medical adviceCall your healthcare provider right away if any of these occur: Pain that is not controlled by the medicine given Repeated vomiting or unable to keep down fluids Fever of 100.4F (38C) or higher, or as directed by your healthcare provider 9 General Instructions [facility] [address] [place] [address] Phone #: ext- [phone] 10/21/2020 10:32 Patient: ANA FANG Sex: F : 1970 Age: 50y Passage of solid red or brown urine (can't see through it) or urine with lots of blood clots Foul-smelling or cloudy urine Unable to pass urine for 8 hours and increasing bladder pressure [id number] [employer]. [address] [place] [address], [place] [address]. All rights reserved. This information is not intended as asubstitute for professional medical care. Always follow your healthcare professional's instructions. You have been given the following additional information: Bladder Infection, Female (Adult) Kidney Stone w/ Colic(Electronically signed by TYRONE Bryant 10/21/2020 21:53) Name Value Range Interpretation Code Description Data Elle rce(s) Supporting Document(s) ID Date Data Source [id number] 10/21/2020 10:49:00 AM EST [facility] 1 Clinical Report - Nurses [facility] [address] [place] [address] Phone #: ext- [phone] 10/21/2020 10:32 Patient: ANA FANG Sex: F : 1970 Age: 50yTRIAGEArrived by private vehicle, and accompanied by family. Historian not patient. ( hospitalized in october dxwith kidney stone pain comes and goes worse last 3 days, abd hurts left side and left flank and cash is offand on).Acuity: LEVEL 3.Chief Complaint: ABDOMINAL PAIN.Alert.Onset. (3 days). She has had abdominal pain. The pain is described as located in the LUQ, left side of theabdomen and LLQ and radiating to the back.Treatment PRIOR AUTHORIZATION NURSE:None.SEPSIS SCREEN: SIRS SCREEN NEGATIVE. SEPSIS SCREEN NEGATIVE. No suspected or confirmedsigns of infection present. --10:47 10/21/20 Chey Royal R.N.10:39 10/21/20. BP: 135/92. MAP: 106. HR: 104. RR: 16. O2 saturation: 97%. Temp: 99 F (oral). Painlevel now: 04/03. --10:47 10/21/20 Chey Royal R.N.Weight: 72.5 kg stated. Height/Length: 63 inches Per Patient. BMI: 28.3. --10:38 10/21/20 Chey Royal R.N.MedicationsZestril Oral (Tablet 10 mg), daily. --10:42 10/21/20 Chey Royal R.N. PriLOSEC Oral 40 mg, daily. --10:42 10/21/20 Chey Royal R.N. glipiZIDE Oral (Tablet 5 mg), daily. Januvia Oral. --10:43 10/21/20 Chey Royal R.N. Januvia Oral (Tablet 100 mg), daily. --10:43 10/21/20 Chey Royal R.N.AllergiesNone. --10:41 10/21/20 Chey Royal R.N.PROBLEMS:Nephrolithiasis.Diabetes Mellitus. --10:43 10/21/20 Chey Royal R.N.ADDITIONAL SURGERIES:Lithotripsy. --10:43 10/21/20 Chey Royal R.N. 2 Clinical Report - Nurses [facility] [address] [place] [address] Phone #: ext- [phone] 10/21/2020 10:32 Patient: ANA FANG Sex: F : 1970 Age: 50y History PAST MEDICAL HX: Immunizations: up-to-date. Last normal menstrual period- Oct 15. SOCIAL HX: Never smoker. No alcohol use or drug use. No recent travel. No known contact with a sick individual. She was offered HIV testing but declined and hepatitis C testing but declined. She has not traveled outside the [place] Infectious disease exposure: No infectious disease exposure. Patient is not a known carrier of tuberculosis, hepatitis, HIV, MRSA or VRE. Patient is not a known carrier of CRE. SELF HARM ASSESSMENT: Self harm assessment was performed. The patient answered "no" to the question(s) "Have you recently felt down, depressed, or hopeless?", "Do you have thoughts of harming or killing yourself?", "Do you have a plan for harming or killing yourself?", "Have you recently had thoughts about harming or killing others?", "Do you have any dangerous items in your possession?", "Have you noticed less interest or pleasure in doing things?", "Are you here because you tried to hurt yourself?" and "Have you ever tried to hurt yourself before today?". ABUSE ASSESSMENT: Abuse assessment. Abuse denied. No suspicion of abuse. No report of abuse. NUTRITIONAL RISK ASSESSMENT: The nutritional risk assessment revealed no deficiencies. FUNCTIONAL ASSESSMENT: Functional assessment: no impairments noted. LEARNING NEEDS ASSESSMENT: The learning needs assessment revealed no barriers. FALL RISK ASSESSMENT: Fall risk assessment completed. No risk factors identified. SKIN INTEGRITY ASSESSMENT: Skin integrity risk assessment completed. No skin integrity risk identified. --10:47 10/21/20 Chey Royal R.N. Interventions Identification band on patient. To treatment room. --10:47 10/21/20 Chey Royal R.N.PHYSICAL ASSESSMENTAmbulatory to room.GENERAL / NEURO / PSYCH: Alert. Oriented X 4. Appears in pain.HEENT: Mucous membranes are pink.RESPIRATORY: Respirations not labored. Breath sounds within normal limits.CVS: Normal sinus rhythm noted. Capillary refill less than 2 seconds.GI / : Abdomen soft. Abdominal tenderness in the left side of the abdomen (left flank tenderness).Bowel sounds within normal limits.SKIN: Skin is warm and dry. --11:04 10/21/20 Joshua Welsh RN.NURSING PROGRESS NOTESPatient gowned. Reassurance given. Two patient identifiers checked. Call light placed in reach. Siderails up x 2. Bed placed in lowest position. Brakes of bed on. Patient ready for evaluation- ED physician 3 Clinical Report - Nurses [facility] [address] [place] [address] Phone #: ext- [phone] 10/21/2020 10:32 Patient: ANA FANG Sex: F : 1970 Age: 50yand PA notified. --10:48 10/21/20 Chey Royal R.N.Patient ID band checked for patient name and birthdate: patient confirmed. Instructions provided to collectclean catch urine and patient verbalized understanding. Clean catch urine collected; s ample sent to lab forurinalysis. Specimen labeled in the presence of the patient. --10:50 10/21/20 Chey Royal R.N.11:04 10/21/20. Patient transported to CT by wheelchair with mask and office systems technology instructor. --11:12 10/21/20Joshua Welsh RN11:13 10/21/2020 Site #1 started via IV in the left antecubital space with an 20g angiocath, with aseptictechnique and good blood return; one attempt. Blood drawn: rainbow set and green tube(s). Labeled in thepresence of the patient and sent to the lab. Saline lock flushed with 10 mL saline. --11:10/21/20 Loren Abreu returned from CT by wheelchair with mask and office systems technology instructor. --11:10/21/20 Joshua Welsh RN11:19 10/21/2020 Started bag #1 1000 mL IV Fluids NS; at 1000 mL/hr over 1 hour(s) via site #1 via IVpump. Allergies verified and confirmed 5 rights. IV patency established. IV site checked: no pain, redness,or swelling. IV flushed thoroughly pre- and post-medication administration. Information reviewed withpatient including reason for taking this medication. Verbalizes understanding. --11:10/21/20 LACIE Abreu11:20 10/21/2020 Toradol (Ketorolac Tromethamine) IVP 30 mg given over 2 minute(s) via site #1.Allergies verified and confirmed 5 rights. IV patency established. IV site checked: no pain, redness, orswelling. IV flushed thoroughly pre- and post- medication administration. IVP given by RN. Informationreviewed with patient including reason for taking this medication. Verbalizes understanding (diluted in 10 mlof nacl). --11:10/21/20 Joshua Welsh RN11:20 10/21/2020 Zofran (Ondansetron HCl) IVP 8 mg given over 2 minute(s) via site #1. Allergies verifiedand confirmed 5 rights. IV patency established. IV site checked: no pain, redness, or swelling. IV flushedthoroughly pre- and post-medication administration. IVP given by RN. Information reviewed with patientincluding reason for taking this medication. Verbalizes understanding. --:10/21/20 Joshua Welsh RN11:32 10/21/2020 Started 1 gm of ROCEPHIN (1GM/50ML) (cefTRIAXone Sodium) IVPB in bag #1 50 mL;at 100 mL/hr over 30 minute(s) via site #1. via IV pump. Allergies verified and confirmed 5 rights. IVpatency established. IV site checked: no pain, redness, or swelling. IV flushed thoroughly pre- andpost- medication administration. Information reviewed with patient including reason for taking thismedication. Verbalizes understanding. --11:32 10/21/20 Joshua Welsh RN11:34 10/21/2020 Toradol IVP Response: pain is improving. Symptoms have improved the patient feelsbetter. --11:34 10/21/20 Joshua Welsh RN11:35 10/21/2020 Zofran IVP Response: symptoms have improved the patient feels better. --11: Joshua Welsh RN 4 Clinical Report - Nurses [facility] [address] [place] [address] Phone #: ext- [phone] 10/21/2020 10:32 [id number] Sex[facility] F : 1970 Age: 50y 12:23 10/21/2020 ROCEPHIN (1GM/50ML) IVPB via IV site #1 Discontinued: infused. Total amount infused: 50 mL. IV patency established. IV site checked: no pain, redness, or swelling. IV flushed thoroughly. --12:48 10/21/20 Joshua Welsh RN 12:48 10/21/2020 IV Fluids NS via IV site #1 Discontinued: infused. Total amount infused: 990 mL. IV patency established. IV site checked: no pain, redness, or swelling. IV flushed thoroughly. --12:48 10/21/20 Joshua Welsh RN 13:45 10/21/2020 Site #1 removed upon discharge. Catheter intact. Manual pressure and bandage applied. --13:45 10/21/20 Joshua Welsh RN.DISPOSITION / DISCHARGE Condition at departure: improved and stable. Discharge instructions provided and reviewed with the patient. Reviewed medication(s) side effects, precautions, dosing and course information. Prescription(s) sent electronically to pharmacy. Reviewed referral to a urologist. Patient verbalized understanding. Written instructions provided in Portuguese. The patient was discharged by the physician daycare assistant. She was discharged home and accompanied by spouse. She left ambulatory and via private vehicle. Spouse driving. --13:46 10/21/20 Joshua Welsh RN 13:45 10/21/20. BP: 114/94. MAP: 100. HR: 76. RR: 16. O2 saturation: 98%. Pain level now: 0/10. --13:46 10/21/20 Joshua Welsh RN.Locked/Released at 10/21/2020 13:46 by Joshua Welsh RN Name Value Range Interpretation Code Description Data Elle rce(s) Supporting Document(s) ID Date Data Source [id number] 10/21/2020 10:49:00 AM EST [facility] 1 Clinical Report - Physicians/Mid Levels [facility] [address] [place] [address] Phone #: ext- [phone] 10/21/2020 10:32 Patient: ANA FANG Sex: F : 1970 Age: 50y Time Seen: 10:50 10/21/2020. Arrived- By private vehicle. Historian- patient.HISTORY OF PRESENT ILLNESS Chief Complaint: ABDOMINAL PAIN and LEFT FLANK PAIN. This started 3 days ago; hospitalized in October with kidney stone pain comes and goes worse last 3 days, abd hurts left side and left flank and cash is off and on and still present. It was abrupt in onset and has been constant. The symptoms are described as moderate. The patient has had abdominal pain. She has had mild, intermittent, crampy left-sided flank pain. No pain with urination, urinary frequency, urgency of urination or hematuria. Last normal menstrual period- Oct 15. Similar symptoms previously. Patient has had similar symptoms several times. Recent medical care: The patient was seen recently at another facility in the emergency department.REVIEW OF SYSTEMS The patient has had nausea. No vomiting, diarrhea, black stools, headache or fever. No chills, anorexia, eye discomfort, sore throat or cough. No difficulty breathing, skin rash, enlarged lymph nodes or joint pain.PAST HISTORY Problems: Nephrolithiasis. Diabetes Mellitus. Additional Surgeries: Lithotripsy. Medications: Januvia Oral (Tablet 100 mg), daily. glipiZIDE Oral (Tablet 5 mg), daily. Januvia Oral. PriLOSEC Oral 40 mg, daily. Zestril Oral (Tablet 10 mg), daily. Allergies: None.SOCIAL HISTORY 2 Clinical Report - Physicians/Mid Levels [facility] [address] [place] [address] Phone #: ext- [phone] 10/21/2020 10:32 Patient: ANA FANG Sex: F : 1970 Age: 50y Never smoker. No alcohol use or drug use.PHYSICAL EXAM Vital Signs: 10/21/2020 10:39 BP: 135/92. MAP: 106. HR: 104. RR: 16. O2 saturation: 97%. Temp: 99 F. Pain level now: 04/03. Have been reviewed as abnormal. Hypertensive. Tachycardic. Oxygen saturation normal. Appearance: Alert. Oriented X3. HEENT: Normal external inspection. ENT: Pharynx normal. Neck: Neck supple. CVS: Tachycardia. Heart sounds normal. Respiratory: No respiratory distress. Breath sounds normal. Abdomen: Soft. Mild tenderness in the left lower quadrant. Bowel sounds normal. No mass. Back: Mild CVA tenderness on the left. Skin: Skin warm and dry. Normal skin color. No rash. Normal skin turgor. Extremities: Extremities nontender. No lower extremity edema. Neuro: Oriented X 3.LABS, X-RAYS, AND EKG CT Abdomen - Pelvis: Moderate left-sided hydronephrosis secondary to a large calculus at the renal pelvis measuring 2.2 x 1.2 cm in size. Study type: renal stone evaluation. Abdomen - pelvic CT performed without contrast. The study was interpreted by the radiologist and contemporaneously by me. Interpretation time: 12:34 10/21/2020. Laboratory Tests: Laboratory tests have been ordered, with results reviewed and considered in the medical decision making process. CBC w Diff: (QUEENIE: 10/21/2020 11:10) ( MsgRcvd 10/21/2020 11:51) Final results Test Result Flag Units (Reference) CBC W/AUTOMATED DIFF COMPLETE BLOOD COUNT WBC 9.4 10/uL (4.2 - 11.0) RBC 4.25 10/uL (4.20 - 5.40) HEMOGLOBIN 10.2 L g/dL (12.0 - 16.0) HEMATOCRIT 32.5 L % (37.0 - 47.0) MCV 76.5 L fL (81.0 - 101) MCH 24.0 L pg (27.0 - 34.0) MCHC 31.4 g/dL (31.0 - 36.0) RDW 14.6 H % (11.5 - 14.5) PLATELETS 498 H 10/uL (150 - 450) MPV 9.2 fL (7.4 - 10.4) NEUT 71.0 % (37.0 - 80.0) LYMPH 20.7 L % (25.0 - 40.0) MONO 6.1 % (3.0 - 8.0) EOS 1.5 % (0.0 - 7.0) BASO 0.4 % (0.0 - 2.5) %IG 0.3 H % (0.0 - 0.0) %NRBC 0.0 % (0.0 - 0.0) #NEUT 6.65 10/uL (2.00 - 6. 90) #LYMPH 1.94 10/uL (0.60 - 3.40) 3 Clinical Report - Physicians/Mid Levels [facility] [address] [place] [address] Phone #: ext- [phone] 10/21/2020 10:32 Patient: ANA FANG Sex: F : 1970 Age: 50y #MONO 0.57 10/uL (0.00 - 0.90) #EOS 0.14 10/uL (0.00 - 0.70) #BASO 0.04 10/uL (0.00 - 0.20) #IG 0.03 10/uL (0.00 - 0.10) #NRBC 0.00 10/uL (0.00 - 0.00) MANUAL DIFF NOT INDICATED RBC MORPH NOT INDICATEDCMP: (QUEENIE: 10/21/2020 11:10) ( MsgRcvd 10/21/2020 12:08) Final results Test Result Flag Units (Reference) COMPREHENSIVE METABOLIC PANEL COMPREHENSIVE METABOLIC PANEL SODIUM 135 mEq/L (134 - 153) POTASSIUM 3.6 mEq/L (3.6 - 5.0) CHLORIDE 101 mEq/L (98 - 107) CO2 23 MEQ/L (22 - 30) GLUCOSE 334 H MG/DL (65 - 110) BUN 13 MG/DL (7 - 21) CREATININE 0.7 MG/DL (0.7 - 1.5) BUN/CREAT 19 (8 - 27) TOTAL PROTEIN 7.9 G/DL (6.3 - 8.2) ALBUMIN 3.9 G/DL (3.9 - 5.0) GLOBULIN 4.0 H GM/DL (2.4 - 3.2) A/G RATIO 1.0 (0.8 - 2.0) CALCIUM 9.0 MG/DL (8.4 - 10.2) TOTAL BILI <0.7 MG/DL (0.2 - 1.3) ALKALINE PHOS 104 U/L (38 - 126) SGOT/AST 23 U/L (5 - 40) SGPT/ALT 23 U/L (7 - 56) ANION GAP 11.0 mmol/L (8.0 - 16.0) AGE 50 yrs NON-AA GFR >60 mL/min AFR AMER GFR >60 mL/min Male GFR Interprentation 20-49 yrs >60 mL/min Wowkpg48-91 yrs >56 mL/min Normal 60-69 yrs >49 mL/min Normal 70-79yrs>42 mL/min Normal 80 and above >35 mL/min Normal Female GFRInterpretation 20-39 yrs >60 mL/min Normal 40-49 yrs >58 mL/minNormal 50-59 yrs >51 mL/min Normal 60-69 yrs >45 mL/min Trxydx71-69 yrs >39 mL/min Normal 80 and above >32 mL/min NormalLipase: (QUEENIE: 10/21/2020 11:10) ( MsgRcvd 10/21/2020 12:08) Final results Test Result Flag Units (Reference) LIPASE 60 U/L (13 - 60)Lactic Acid: (QUEENIE: 10/21/2020 11:10) ( MsgRcvd 10/21/2020 12:01) Final results Test Result Flag Units (Reference) LACTIC ACID 2.5 H MMOL/L (0.2 - 2.2)CT ABD PEL W/O Oral W/O IV Contrast: (QUEENIE: 10/21/2020 10:58) ( [facility] vd 10/21/2020 12:17) InProgressCT ABDReason(s): Abdominal PainTRANSPORTATION: WC IV? IV?(Yes) O2? Oxygen?(No) Ro: No CMTS: Left Flank Pain, h/o kidney stone Exam 4 Clinical Report - Physicians/Mid Levels [facility] [address] [place] [address] Phone #: ext- [phone] 10/21/2020 10:32 Patient: ANA FANG Sex: F : 1970 Age: 50yCT ABD //T// PELV W/[place] [address] PHONE: [phone] FAX: [phone] .................. : LEONCIO Monk Acct Number.................. : [id number]. ................. : TR-07 MR Number ................... : [id number] type ............. : E/R Discharge Date......... ... :Admit Date ......... : 10/21/20 Admit Phys .................... : CHANLIECCODate of ....... : 1970 Family Phys ................... : UNKNOWN GUPhone .................. : [phone] Age ................................ : 50Film# .................. .:[id number] Sex ................................. : FUnsigned transcriptions are preliminary reports and do not represent a medical or legal document CT ABD Reason(s): Abdominal PainCT SCAN OF THE ABDOMEN/PELVIS WITHOUT IV CONTRAST,10/21/20:INDICATION: Abdominal pain.FINDINGS:Lung bases are clear. No focal infiltrate or consolidation is identified. Heart appearsunremarkable. Liver, pancreas, gallbladder, spleen, adrenal glands, and right kidney all appearunremarkable. Left kidney demonstrates a large calculus in the renal pelvis which is obstructingthe kidney and resulting in moderate hydronephrosis. Calculus measures approximately 2.2 x 1.2cm in size. Uterus appears enlarged and measures 12.3 x 7.9 cm in size. The appendix is notdiscretely visualized. No free fluid is identified in the pelvis. Osseous structures showdegenerative changes.IMPRESSION:Moderate left-sided hydronephrosis secondary to a large calculus at the renal pelvis measuring2.2 x 1.2 cm in size.While performing the above CT examination, radiation dose reduction was accomplishedutilizing automated exposure control, adjusting of the mA and kV based on the patient's bodysize and/or the use of imperative reconstructive techniques.CT dose 673.9 mGycm.Examination dictated by TYRONE Vargas. Examination was reviewed with Belinda Rashid MD, radiologist at the time of this dictation. Electronically Reviewed and Signed By Page 1 of 2[place] [id number], [place] [address]EJDYL: [phone] FAX: [phone] .................. : LEONCIO Monk Acct Number.................. : [id number]. ................. : TR-07 MR Number ................... : [id number] type ............. : E/R Discharge Date......... ... : 5 Clinical Report - Physicians/Mid Levels [facility] [address] [place] [address] Phone #: ext- [phone] 10/21/2020 10:32 Patient: ANA FANG Sex: F : 1970 Age: 50y Admit Date ......... : 10/21/20 Admit Phys .................... : MATTY Date of ....... : 1970 Family Phys ................... : UNKNOWN Phone .................. : [phone] Age ................................ : 50 Film# .................. .:[id number] Sex ................................. : F Unsigned transcriptions are preliminary reports and do not represent a medical or legal document CT ABD Reason(s): Abdominal Pain DCTNAME , SIGNDATE, KGG Transcribe Initials: SSR, Transcribe Date: 10/21/20 12:12, Dictation Date: <<REPDIST>> Page 2 of 2 Urinalysis: (QUEENIE: 10/21/2020 10:50) ( MsgRcvd 10/21/2020 11:11) Final results Test Result Flag Units (Reference) URINALYSIS URINALYSIS SOURCE R COLOR yellow (NORMAL: Yello CLARITY clear (NORMAL: Clear SPEC GRAVITY 1.025 (1.001 - 1.030 pH 5 (5 - 9) GLUCOSE 1000 A (NORMAL: Negat BILIRUBIN NEG (NORMAL: Negat KETONE NEG (NORMAL: Negat PROTEIN 30 (NORMAL: Negat NITRITE NEG (NORMAL: Negat BLOOD 250 A (NORMAL: Negat LEUK EST 500 A (NORMAL: Negat UROBILINOGEN NOR (less than 1.0 MICROSCOPIC See Below WBC 30 - 40 A (NORMAL: NONE RBC 7 - 10 A (NORMAL: NONE EPITHELIAL FEW (NORMAL: NONE BACTERIA 1+ SMALL (NORMAL: NONE.PROGRESS AND PROCEDURES Course of Care: 13:Oct 21 2020. Evaluation after observation and results of tests back. (Discussed CT, labs, PE findings with Dr Ramsay and pt can call the office for follow up.). Patient counseled in person regarding the patient's stable condition, test results, diagnosis and need for follow-up. Patient agrees with plan of care. 13:Oct 21 2020. Disposition: Discharged home in good and improved condition (13:Oct 21 2020). 6 Clinical Report - Physicians/Mid Levels [facility] [address] [place] [address] Phone #: [phone]- [phone] 10/21/2020 10:32 Patient: ANA FANG [facility]#: [id number] Sex: F : 1970 Age: 50yCLINICAL IMPRESSION Left nephrolithiasis with renal colic and urinary tract infection. Acute urinary tract infection with cystitis and hematuria.INSTRUCTIONS Warnings: GENERAL WARNINGS: Return or contact your physician immediately if your condition worsens or changes unexpectedly, if not improving as expected, or if other problems arise. Specifically return if pain or fever not controlled by acetaminophen or ibuprofen worsens. Your Current Medications: Your current home medications have been reviewed. CONTINUE TAKING THE FOLLOWING MEDICATIONS: glipiZIDE Oral : Tablet 5 mg, daily. Januvia Oral : Tablet 100 mg, daily. Januvia Oral. PriLOSEC Oral : 40 mg daily. Zestril Oral : Tablet 10 mg, daily. Prescription Medications: Flomax 0.4 mg capsule Take 1 capsule at bedtime for 30 days -- Dispense 30 capsule. Refills: 0. Substitution permitted. Pharmacy - [address] ; [place] [address]. . cefdinir 300 mg capsule Take 1 capsule twice a day for 7 days -- Dispense 14 capsule. Refills: 0. Substitution permitted. Pharmacy - [facility] - [id number] ; [place] [address]. FaxNumber: . ibuprofen 800 mg tablet Take 1 tablet three times a day for 15 days -- Dispense 45 tablet. Refills: 0. Substitution permitted. Pharmacy - [facility] - [id number] ; [place] [address]. . Understanding of the discharge instructions verbalized by patient. Follow-up with: Ubaldo Ramsay M.D., Urology, , [address] [place] [address], [phone] Follow up. Call for the next available appointment. Reason for referral: evaluation and treatment. Summary of care provided to patient. 7 Clinical Report - Physicians/Mid Levels [facility] [address] [place] [address] Phone #: [phone] 10/21/2020 10:32 Patient: ANA FANG Sex: F : 1970 Age: 50y(Electronically signed by TYRONE Bryant 10/21/2020 21:5 3) Name Value Range Interpretation Code Description Data Elle rce(s) Supporting Document(s) ID Date Data Source [id number] 10/21/2020 12:08:00 PM [facility] Name Value Range Interpretation Code Description Data Elle rce(s) Supporting Document(s) Lipase [Enzymatic activity/volume] in Serum or Plasma 60 U/L 13 - 60 [facility] ID Date Data Source [id number] 10/21/2020 12:08:00 PM [facility] Name Value Range Interpretation Code Description Data Elle rce(s) Supporting Document(s) COMPREHENSIVE METABOLIC PANEL [facility] COMPREHENSIVE METABOLIC PANEL Sodium [Moles/volume] in Serum or Plasma 135 mEq/L 134 - 153 [facility] Potassium [Moles/volume] in Serum or Plasma 3.6 mEq/L 3.6 - 5.0 [facility] Chloride [Moles/volume] in Serum or Plasma 101 mEq/L 98 - 107 [facility] Carbon dioxide, total [Moles/volume] in Serum or Plasma 23 MEQ/L 22 - 30 [facility] Glucose [Mass/volume] in Serum or Plasma 334 MG/DL 65 - 110 H [facility] BUN 13 MG/DL 7 - [facility] Creatinine [Mass/volume] in Serum or Plasma 0.7 MG/DL 0.7 - 1.5 [facility] BUN/CREAT 19 8 - 27 [facility] Protein [Mass/volume] in Serum or Plasma 7.9 G/DL 6.3 - 8.2 [facility] Albumin [Mass/volume] in Serum or Plasma 3.9 G/DL 3.9 - 5.0 [facility] Globulin [Mass/volume] in Serum by calculation 4.0 GM/DL 2.4 - 3.2 H [facility] A/G RATIO 1.0 0.8 - 2.0 [facility] Calcium [Mass/volume] in Serum or Plasma 9.0 MG/DL 8.4 - 10.2 [facility] Bilirubin.total [Mass/volume] in Serum or Plasma <0.7 MG/DL 0.2 - 1.3 [facility] Alkaline phosphatase [Enzymatic activity/volume] in Serum or Plasma 104 U/L 38 - 126 [facility] Aspartate aminotransferase [Enzymatic activity/volume] in Serum or Plasma 23 U/L 5 - 40 [facility] Alanine aminotransferase [Enzymatic activity/volume] in Seru m or Plasma 23 U/L 7 - 56 [facility] Anion gap 3 in Serum or Plasma 11.0 mmol/L 8.0 - 16.0 [facility] AGE 50 yrs [facility] al NON-AA GFR >60 mL/min [facility] ital AFR AMER GFR >60 mL/min [facility] Male GFR In terprentation 20-49 yrs >60 mL/min Normal 50-59 yrs >56 mL/min Normal 60-69 yrs >49 mL/min Normal 70-79yrs >42 mL/min Normal 80 and above >35 mL/min Normal Female GFR Interpretation 20-39 yrs >60 mL/min Normal 40-49 yrs >58 mL/min Normal 50-59 yrs >51 mL/min Normal 60-69 yrs >45 mL/min Normal 70-79 yrs >39 mL/min Normal 80 and above >32 mL/min Normal ID Date Data Source [id number] 10/21/2020 12:01:00 PM [facility] Name Value Range Interpretation Code Description Data Elle rce(s) Supporting Document(s) Lactate [Moles/volume] in Serum or Plasma 2.5 MMOL/L 0.2 - 2.2 H [facility] ID Date Data Source [id number] 10/21/2020 11:51:00 AM [facility] Name Value Range Interpretation Code Description Data Elle rce(s) Supporting Document(s) CBC W/AUTOMATED DIFF [facility] COMPLETE BLOOD COUNT Leukocytes [#/volume] in Blood by Automated count 9.4 10^3/uL 4.2 - 1 1.0 [facility] Erythrocytes [#/volume] in Blood by Automated count 4.25 10^6/uL 4. 20 - 5.40 [facility] Hemoglobin [Mass/volume] in Blood 10.2 g/dL 12.0 - 16.0 L [facility] Hematocrit [Volume Fraction] of Blood by Automated count 32.5 % 3 7.0 - 47.0 L [facility] Erythrocyte mean corpuscular volume [Entitic volume] by Auto mated count 76.5 fL 81.0 - 101 L [facility] Erythrocyte mean corpuscular hemoglobin [Entitic mass] by Automated count 24.0 pg 27.0 - 34.0 L [facility] Erythrocyte mean corpuscular hemoglobin concentration [Mass/volume] by Automated count 31.4 g/dL 31.0 - 36.0 [facility] Erythrocyte distribution width [Ratio] by Automated count 14.6 % 11.5 - 14.5 H [facility] Platelets [#/volume] in Blood by Automated count 498 10^3/uL 150 - 45 0 H [facility] Platelet mean volume [Entitic volume] in Blood by Automated count 9.2 fL 7.4 - 10.4 [facility] Neutrophils/100 leukocytes in Blood by Automated count 71.0 % 37. 0 - 80.0 [facility] Lymphocytes/100 leukocytes in Blood by Manual count 20.7 % 25.0 - 40.0 L [facility] Monocytes/100 leukocytes in Blood by Automated count 6.1 % 3.0 - 8.0 [facility] Eosinophils/100 leukocytes in Blood by Automated count 1.5 % 0.0 - 7.0 [facility] Basophils/100 leukocytes in Blood by Automated count 0.4 % 0.0 - 2.5 [facility] %IG 0.3 % 0.0 - 0.0 [facility] %NRBC 0.0 % 0.0 - 0.0 [facility] al Neutrophils [#/volume] in Blood by Automated count 6.65 10^3/uL 2.00 - 6.90 [facility] Lymphocytes [#/volume] in Blood by Automated count 1.94 10^3/uL 0.60 - 3.40 [facility] Monocytes [#/volume] in Blood by Automated count 0.57 10^3/uL 0.00 - 0.90 [facility] Eosinophils [#/volume] in Blood by Automated count 0.14 10^3/uL 0.00 - 0.70 [facility] Basophils [#/volume] in Blood by Automated count 0.04 10^3/uL 0.00 - 0.20 [facility] #IG 0.03 10^3/uL 0.00 - 0.10 [facility] #NRBC 0.00 10^3/uL 0.00 - 0.00 [facility] MANUAL DIFF NOT INDICATED [facility] RBC MORPH NOT INDICATED [facility] ID Date Data Source [id number] 10/24/2020 01:02:00 PM EST [facility] Name Value Range Interpretation Code Description Data Elle rce(s) Supporting Document(s) CULTURE URINE [facility] _CULTURE URINE_$$[id number]$$[id number]$$[id number]$$[id number]$$[id number]$$[id number]$$[id number]$$[id number]$$265282$$ 367390$$448129$$[id number]$$[id number]$$938680$$156622$$633944$$448367$$[id number]$$587586$$ 241030$$628477$$253428$$[id number]$$734792$$[id number]$$685136$$[id number] -- Continued on next page --Patient: LEONCIO Monk Order: [id number] Page 2Culture: CULTURE URINE Status: Final ==== -- Continued on next page --Patient: LEONCIO Monk Order: [id number] Page 2Culture: CULTURE URINE Status: Prelim =====$$[id number] DATE/TIME: 10/24/2020 12:06Culture: CULTURE URINE Status: FinalUrine Culture,Comprehensive: P1No growth in 36 - 48 hours. Previous result entered on 10/23/2020 10:00 ET No growth after 18-24 hours.P1 [facility]: [id number] [address] [place] [id number] [facility] [address]Medical Director : Lei Sarkar MD NPI #:Lab Di pk : 10/23/20.1017.XMT.SENT REF 10/24/20.1302.XMT.SENT REF ID Date Data Source [id number] 10/21/2020 11:10:00 AM EST [facility] Name Value Range Interpretation Code Description Data Elle rce(s) Supporting Document(s) URINALYSIS [facility] UR[facility]AL[facility] SOURCE R [facility] COLOR yellow NORMAL: Yellow [facility] CLARITY clear NORMAL: Clear [facility] Specific gravity of Urine by Test strip 1.025 1.001 - 1.030 [facility] pH 5 5 - 9 [facility] Glucose [Mass/volume] in Urine by Test strip 1000 NORMAL: Negat samra A [facility] Bilirubin.total [Presence] in Urine by Test strip NEG NORMAL: Negative [facility] Ketones [Presence] in Urine by Test strip NEG NORMAL: Negative [facility] Protein [Mass/volume] in Urine by Test strip 30 NORMAL: Negat samra [facility] Nitrite [Presence] in Urine by Test strip NEG NORMAL: Negative [facility] BLOOD 250 NORMAL: Negative [facility] Leukocyte esterase [Presence] in Urine by Test strip 500 DUANE L: Negative [facility] Urobilinogen [Mass/volume] in Urine by Test strip NOR less adrian n 1.0 mg/dL [facility] MICROSCOPIC See Below [facility] ital WBC 30 - 40 NORMAL: NONE SEEN A [facility] Erythrocytes [#/volume] in Urine by Test strip 7 - 10 NORMAL: NON E SEEN A [facility] EPITHELIAL FEW NORMAL: NONE SEEN [facility] Bacteria [Presence] in Urine sediment by Light microscopy 1+ SMALL NORMAL: NONE SEEN [facility] Procedure Vital Signs ID Date Data Source UNK Name Value Range Interpretation Code Description Data Source(s) Body temperature 97.2 [degF] 97.2 [degF] [facility] Body weight 72.122 kg 72.122 kg [facility] ([facility]) Body mass index (BMI) [Ratio] 28.2 kg/m2 28.2 k g/m2 [facility] ([facility]) Heart rate 81 /min 81 /min [facility] Diastolic blood pressure 83 mm[Hg] 83 mm[Hg] [facility] ([facility]) Systolic blood pressure 130 mm[Hg] 130 mm[Hg] M [facility] ([facility]) Body weight 159.00 [lb_av] 159.00 [lb_av] [facility] T ([facility]) Body height 63 [in_i] 63 [in_i] [facility] ([facility]) 5'3" Diastolic blood pressure 86 mm[Hg] 86 mm[Hg] eCW1 ([facility]) Systolic blood pressure 120 mm[Hg] 120 mm[Hg] e CW1 ([facility]) Body temperature 97.8 [degF] 97.8 [degF] eCW1 ( [facility]) Respiratory rate 20 /min 20 /min eCW1 ([facility]) Heart rate 106 /min 106 /min eCW1 ([facility]) Body mass index (BMI) [Ratio] 29.23 kg/m2 29.23 kg/m2 eCW1 ([facility]) Body height 63 [in_us] 63 [in_us] eCW1 ([facility]) Body weight Measured 165 [lb_av] 165 [lb_av] eC W1 ([facility])
--- OUTSIDE RECORDS SUMMARY | 2020-12-10 09:13 | CCD | Continuity of Care Document ---
Author Author Rocio MCCONNELL M.D. Organization Unknown Address [address] [place] [address] Phone [phone] Care Team Providers Care Assistant Professor Of Life Sciences Name Role Phone Edwin Hurt MD [facility] [phone] Problems Active Problems Provider Date Anemia Isaías Mcconnell M.D. Onset: 11/26/19 21 Social History Type Date Description Comments Sex Unknown ETOH Use Denies alcohol use Tobacco Use Start: Unknown Patient has never smoked Allergies, Adverse Reactions, Alerts Description No Known Drug Allergies Medications Active Medications SIG Qnty Indications Ordering Provide r Date Suprep Bowel Prep Kit 17.5-3.13-1.6GM/177ML Solution use as directed 354ml Isaías Mcconnell M.D. 11/26/[address] Unknown Lisinopril 10mg Tablets Unknown Glipizide 5mg Tablets Unknown Ferosul 325(65Fe) mg Tablets Unknown Ascorbic Acid 500mg Tablets Unknown Sitagliptin 100MG Unknown 0 000 Immunizations Description No Information Available Vital Signs Date Vital Result Comment 11/26/2020 11:12am Height 63 inches 5'3" Weight 159.00 lb BP Systolic 130 mmHg BP Diastolic 83 mmHg Heart Rate 81 /min BMI (Body Mass Index) 28.2 kg/m2 Weight 72.122 kg Body Temperature 97.2 F Results Description No Information Available Procedures Description No Information Available Medical Devices Description No Information Available Encounters Type Date Location Provider Dx Diagnosis Office Visit 11/26/2020 10:30a Main Office Isaías Mcconnell M.D. D 64.9 Anemia, unspecified Assessments Date Code Description Provider 11/26/2020 D64.9 Anemia Isaías tristan M.D. Plan of Treatment Future Appointment(s):* 12/03/2020 7:00 am - [place] at Main Office * 12/10/2020 9:15 am - Isaías Mcconnell M.D. at Main Office 11/26/2020 - Isaías Mcconnell M.D.* D64.9 Anemia* Comments:* 50 yo female who presents for a h/o anemia. She had developed ascites, which has resolved. Her liver functions are normal. She has left sided pain, which may be due to her kidney stone. No weight loss.Plan:1. Colonoscopy + egd.2. Informed consent. Functional Status Description No Information Available Mental Status Description No Information Available Referrals Refer to Reason for Referral Status Appt Date Isaías Mcconnell M.D. Scheduled [address] [place] [phone]
--- OUTSIDE RECORDS SUMMARY | 2020-12-10 09:13 | CCD | Continuity of Care Document ---
Author Author Rocio MCCONNELL M.D. Organization Unknown Address [address] [place] [address] Phone [phone] Care Team Providers Care Rehabilitation Therapist Name Role Phone Edwin Hurt MD [facility] [phone] Problems Active Problems Provider Date Anemia Isaías [...] Medical Devices Description No Information Available Encounters Description No Information Available Assessments Date Code Description Provider 11/26/2020 D64.9 Anemia Isaías tristan M.D. Plan of Treatment Future Appointment(s):* 12/03/2020 7:00 am - [facility] at Main Office * 12/10/2020 9:15 am [...] Description No Information Available Referrals Refer to Dr Reason for Referral Status Appt Date Isaías Mcconnell M.D. Scheduled [address] [place] [address] [phone]
--- NOTE | 2020-12-10 10:22 | ROOR ---
Patient Name: Rocio Prado Procedure Date: 12/10/2020 10:07 AM Date of : 1970 Age: 50 Room: [facility] Gender: Female Note Status: Finalized Procedure: Upper Endoscopy + Biopsies Indications: Unexplained iron deficiency anemia Providers: Isaías Mcconnell MD Referring MD: KARON BRANTLEY MD Requesting Provider: Medicines: Monitored Anesthesia Care Complications: No immediate complications. Procedure: Pre-Anesthesia Assessment: - The heart rate, respiratory rate, oxygen saturations, blood pressure, adequacy of pulmonary ventilation, and response to care were monitored throughout the procedure. The Endoscope was introduced through the mouth, and advanced to the second part of duodenum. The upper GI endoscopy was accomplished without difficulty. The patient tolerated the procedure well. Findings: The Z-line was irregular and was found 35 cm from the incisors. Multiple biopsies were obtained with cold forceps for evaluation to rule out Boss's Esophagus randomly at the gastroesophageal junction. No other significant abnormalities were identified in a careful examination of the stomach. Biopsies were taken with a cold forceps in the gastric antrum for Helicobacter pylori testing. The exam of the duodenum was otherwise normal. Biopsies for histology were taken with a cold forceps in the first portion of the duodenum for evaluation of celiac disease. The exam was otherwise without abnormality. Impression: - Z-line irregular, 35 cm from the incisors. - The examination was otherwise normal. - Multiple biopsies were obtained at the gastroesophageal junction. - Biopsies were taken with a cold forceps for Helicobacter pylori testing. - Biopsies were taken with a cold forceps for evaluation of celiac disease. - The examination was otherwise normal. Recommendation: - Patient has a contact number available for emergencies. The signs and symptoms of potential delayed complications were discussed with the patient. Return to normal activities tomorrow. Written discharge instructions were provided to the patient. - High fiber diet. - Discharge patient to home. - Follow an antireflux regimen. - Continue present medications. - Await pathology results. - Telephone GI clinic for pathology results in 1 week. - Return to referring physician. - The findings and recommendations were discussed with the patient. Procedure Code(s): --- Professional --- 60024, Esophagogastroduodenoscopy, flexible, transoral; with biopsy, single or multiple Diagnosis Code(s): --- Professional --- K22.8, Other specified diseases of esophagus D50.9, Iron deficiency anemia, unspecified CPT copyright 2019 [employer]. All rights reserved. The codes documented in this report are preliminary and upon notched blade loader review may be revised to meet current compliance requirements. Isaías Mcconnell MD Isaías Mcconnell MD 12/10/2020 10:21:41 AM Electronically signed by Isaías Mcconnell MD Number of Addenda: 0 Note Initiated On: 12/10/2020 10:07 AM Estimated Blood Loss: Estimated blood loss: none.
--- NOTE | 2020-12-10 10:36 | ROOR ---
Patient Name: Rocio Prado Procedure Date: 12/10/2020 10:07 AM Date of : 1970 Age: 50 Room: [facility] Gender: Female Note Status: Finalized Procedure: Total Colonoscopy to Cecum Indications: Unexplained iron deficiency anemia Providers: Isaías Mcconnell MD Referring MD: KARON BRANTLEY MD Requesting Provider: Medicines: Monitored Anesthesia Care Complications: No immediate complications. Procedure: Pre-Anesthesia Assessment: - The heart rate, respiratory rate, oxygen saturations, blood pressure, adequacy of pulmonary ventilation, and response to care were monitored throughout the procedure. The Colonoscope was introduced through the anus and advanced to the cecum, identified by appendiceal orifice and ileocecal valve. The colonoscopy was performed without difficulty. The patient tolerated the procedure well. The quality of the bowel preparation was excellent. Findings: The perianal and digital rectal examinations were normal. Non-bleeding internal hemorrhoids were found during retroflexion. The hemorrhoids were small and Grade I (internal hemorrhoids that do not prolapse). No other significant abnormalities were identified in a careful examination of the remainder of the colon. The exam was otherwise without abnormality on direct and retroflexion views. Impression: - Non-bleeding internal hemorrhoids. - The examination was otherwise normal on direct and retroflexion views. - No specimens collected. - The exam was otherwise normal to the cecum. Recommendation: - Patient has a contact number available for emergencies. The signs and symptoms of potential delayed complications were discussed with the patient. Return to normal activities tomorrow. Written discharge instructions were provided to the patient. - High fiber diet. - Discharge patient to home. - Continue present medications. - Repeat colonoscopy in 10 years for screening purposes. - Return to referring physician. - The findings and recommendations were discussed with the patient. Procedure Code(s): --- Professional --- 88547, Colonoscopy, flexible; diagnostic, including collection of specimen(s) by brushing or washing, when performed (separate procedure) Diagnosis Code(s): --- Professional --- K64.0, First degree hemorrhoids D50.9, Iron deficiency anemia, unspecified CPT copyright 2019 [employer]. All rights reserved. The codes documented in this report are preliminary and upon yard general car supervisor review may be revised to meet current compliance requirements. Isaías Mcconnell MD Isaías Mcconnell MD 12/10/2020 10:36:02 AM Electronically signed by Isaías Mcconnell MD Number of Addenda: 0 Note Initiated On: 12/10/2020 10:07 AM Estimated Blood Loss: Estimated blood loss: none.
[2020-12-10 11:00] VITALS: BP 118/76
== END 2020-12-10 11:08 | disposition home or self-care (01) ==
LOC: M OPP 09:00
PROVIDERS: ATTEND Internal Medicine Gastroenterology
DX: D50.9 Iron deficiency anemia, unspecified (principal); K64.0 First degree hemorrhoids; D13.1 Benign neoplasm of stomach; D13.39 Benign neoplasm of other parts of small intestine; K22.8 Other specified diseases of esophagus; I10 Essential (primary) hypertension; E11.9 Type 2 diabetes mellitus without complications; R12 Heartburn; Z87.442 Personal history of urinary calculi; Z79.84 Long term (current) use of oral hypoglycemic drugs; Z79.899 Other long term (current) drug therapy
CPT/HCPCS: 43239; 45378; 88305; J3010

== ENCOUNTER → 2021-01-09 | Outpatient (CLI) | payer OTHER ==
[~2021-01-09] MED LIST changes: +CRES5TAB PO; +METF500T13 PO; -NS 1,000 ML IV ONE
--- NOTE | 2021-01-09 13:16 | REP ---
INDICATION: CADY DIAG MAMMO/CALCIFICATIONS; RIGHT AXILLA/SWELLING. Mammography from December of 2019 was BI-RADS category 4 suspicious for micro calcific grouping in the left breast. No histologic sampling procedure has been accomplished in the interval. Patient received both COVID vaccinations in the right arm in November of 2020. COMPARISON: Mammography comparison mammography December 26, 2019 and January 18, 2020. TECHNIQUE: Bilateral CC and MLO) view(s) were taken. Routine views of the left breast are augmented by magnified focal spot-compression CC, MLO, and mL views. A targeted right axillary sonography is performed. FINDINGS: Scattered fibroglandular elements are seen bilaterally. No suspicious or dominant density is seen. In the left breast at approximately 12 to 1 o'clock position, a suspicious fairly tight grouping of predominantly punctate but a poly more fixed microcalcifications is again seen essentially unchanged from the study done 1 year prior. No new finding is seen in the left breast. On the right there is a slightly hypertrophied lymph node compared to its appearance on the December 26, 2019 study this is ipsilateral to the recent COVID vaccine and is most likely benign related zion hyperplasia. No worrisome skin change is appreciated. 3-D tomosynthesis shows no additional finding. The Volpara volumetric breast density pattern is B. Targeted right axillary sonography: Multiple right axillary lymph nodes are seen. There is a 1.6 x 1.7 x 0.4 cm node which is quite hypoechoic and without direct nice a bowl fatty hilar. There is a 2nd lymph node with somewhat thickened cortex up to 5 mm. This node measures 1.3 x 0.8 x 0.7 cm. There are 4 normal appearing lymph nodes measured as follows: 1.1 x 1.9 x 0.8, 0.9 x 1.2 x 0.6, 1.2 x 1.8 x 0.9, and 0.9 x 0.8 x 0.5 cm respectively.. IMPRESSION: 1. BI-RADS category 4 suspicious left breast mammogram. Microcalcification 12 to 1 o'clock position. 2. BI-RADS category 0 right breast imaging due to enlarged lymph node right axilla, likely reactive due to recent COVID vaccination. This patient's [facility] lifetime breast cancer risk assessment score is 11.3%. This mammogram was interpreted with the aid of an FDA-approved computer-aided detection system. The patient states she had a clinical breast exam in over a year ago. The patient letter being requested is M4. RECOMMENDATION: 1. Stereotactic needle biopsy is recommended for the microcalcifications in the left breast with marker clip placement and post clip placement left breast mammography.. 2. Recommend short interval follow-up ultrasound right axilla 4-6 weeks regarding hypertrophied lymph nodes. <Electronically signed by Ricki Keith > 01/09/21 [id number]
== END ==
LOC: M WHC 11:10
PROVIDERS: ATTEND Emergency Medicine
DX: Z12.31 Encounter for screening mammogram for malignant neoplasm of breast (principal); R92.0 Mammographic microcalcification found on diagnostic imaging of breast
CPT/HCPCS: 76882; 77066; G0279

== ENCOUNTER → 2021-02-12 | Outpatient (CLI) | payer OTHER ==
[~2021-02-12] MED LIST changes: +CLAR10CA3 PO; +METF-839 PO
[2021-02-12 10:07] VITALS: BP 118/76
--- NOTE | 2021-02-12 10:07 | ROOPDOC ---
[facility] Report Of Operation Report of Operation DATE OF PROCEDURE: 02/12/21 DIAGNOSIS: Left breast suspicious calcifications PROCEDURE: Left breast stereotactic biopsy with clip placement SURGEON: Philip Erazo BLOOD LOSS: minimal Lidocaine 1% LOT [id number] Expiration 09/2021 Sodium Bicarbonate 8.4% LOT [id number] Expiration 11/2021 Hydromark clip LOT [id number] Expiration 09/2023 SHAPE : 3 Bx device: Stereotactic Mammotome Revolve Dual Vacuum- assisted Biopsy System 10 G LOT [id number] 1D Expiration 10/2023 REF [id number] Informed consent was obtained in the preop area. The most common risk and possible complications including bleeding, hematoma, bruising, infection, injury to surrounding structures were explained to the patient and patient expressed understanding. Patient was taken to the procedure room and placed prone on the m-spatial [facility] Prone Breast Biopsy table with the left breast hanging through the table aperture. Left breast was placed into Cranio-Caudal compression and Sheet Sewer rosa images were taken. Suspicious calcifications were identified on the rosa images and target was set. CC approach from the bottom was chosen for this procedure. At this time, since we were able to confirm visibility of the suspicious calcifications and patient tolerated prone positioning allowing to proceed with the biopsy, appropriate time out was done stating patients name, date of , and the procedure to be performed. The left breast in CC compression was prepped in the usual fashion. Plain Lidocaine 1% and 8.4% sodium bicarbonate 10:1 mix was used to anesthetize the skin, the biopsy site and tissues along the anticipated biopsy tract. Small skin incision was made with blade number 11. Mammotome 10 G stereotactic breast biopsy device was inserted through the incision and advanced to the previously set coordinates marking the target lesion. Pre-fire imaging was taken to assure appropriate positioning. At this time, Mammotome 10 G breast biopsy device was fired and five vacuum assisted biopsies were collected. The biopsy samples were investigated with [employer] system and target calcifications were observed. Biopsy samples were then placed in the formaldehyde, marked with patients name and left breast biopsy site, and sent to pathology for evaluation. SHAPE 3 Hydromark clip was placed into the Mammotome biopsy device channel and deployed. Post-deployment imaging was done to assure appropriate clip deployment. Clip was noted in the left breast. At this point, paddle CC compression of the left breast was released and manual pressure was held to decrease harmonic effect and to assure hemostasis. No bleeding was noted upon removal of the pressure. Patient was slowly repositioned and placed into sitting position, and then assisted off the table. Post-biopsy mammogram of the left breast was obtained and showed clip in expected position. Postprocedural dressing was placed. Patient tolerated procedure well and was taken to the recovery unit in stable condition. Discharge instructions were discussed with the patient and patient expressed understanding. PHILIP ERAZO DO Feb 12, 2021 10:07
--- NOTE | 2021-02-12 11:06 | REP ---
INDICATION: R92.8 ABN MAMMO LEFT BREAST. COMPARISON: Comparison mammography is from January 09, 2021.. TECHNIQUE: Stereotactic mammographic guidance. FINDINGS: Stereotactic mammographic guidance is provided to Dr. Figueroa performed a stereotactic needle biopsy for microcalcifications in the left breast. IMPRESSION: Procedural imaging. <Electronically signed by Ricki Keith > 02/12/21 [id number]
--- NOTE | 2021-02-12 11:07 | REP ---
INDICATION: R92.8 ABN MAMMO LEFT BREAST. Marker clip placement views. COMPARISON: Comparison mammography January 09, 2021. TECHNIQUE: Craniocaudal and mediolateral views of the left breast are obtained. FINDINGS: Craniocaudal and mediolateral views of the left breast demonstrate the needle biopsy marker clip in good position at the site where previous mammography showed microcalcifications. The microcalcifications from the target grouping appear to have been removed. No evidence of hematoma. IMPRESSION: Marker clip in good position. <Electronically signed by Ricki Keith > 02/12/21 110
--- NOTE | 2021-02-12 11:26 | REP ---
INDICATION: N63.10 RIGHT BREAST MASS. 4 o'clock breast mass 3.5 cm from the nipple right breast. COMPARISON: Comparison mammography January 09, 2021.. TECHNIQUE: Targeted sonography right breast. FINDINGS: The right breast is scanned from 3:00 to 5:00 in the area the palpable abnormality. Fairly homogeneous fibroglandular background echotexture is seen. No cyst or mass is observed. No could stick shadowing seen. IMPRESSION: BI-RADS category 1-findings. Clinical follow-up is advised. <Electronically signed by Ricki Keith > 02/12/21 1121
--- NOTE | 2021-02-13 07:35 | REP ---
INDICATION: R92.8 ABN MAMMO LEFT BREAST. COMPARISON: Comparison mammography January 09, 2021.. TECHNIQUE: Two views. FINDINGS: Specimen radiography post left breast stereotactic biopsy demonstrates microcalcifications from the target grouping in 3 of the removed specimens. IMPRESSION: Specimen radiograph demonstrates microcalcifications from the target cluster. <Electronically signed by Ricki Keith > 02/12/21 0920
== END ==
LOC: M WHCPRO 06:43
PROVIDERS: ATTEND Surgery
DX: N63.15 Unspecified lump in the right breast, overlapping quadrants (principal); N62 Hypertrophy of breast

== ENCOUNTER 2021-03-04 06:21 | Day surgery (SDC) | payer OTHER ==
[~2021-03-04] VITALS: Ht 160 cm; Wt 70.8 kg
[~2021-03-04 06:21] MED LIST changes: +HEPARIN SOD (PORCINE) 5000UNITS/ML 1ML VIAL/SYRINGE SQ ONE; +LR 1,000 ML IV ONE; +ceFAZolin SOD 2 GM in IV 1 EA IV ONE
[2021-03-04] MEDS ORDERED: BUPIVACAINE HCL 0.25% 30ML VIAL As Ordered ONE (07:10)
[2021-03-04] MEDS ORDERED: LIDOCAINE 1% SDV 30ML VIAL As Ordered ONE (07:10)
[2021-03-04] MEDS ORDERED: LIDOCAINE 2% 100MG/5ML SDV (FOR ANES.) As Ordered ONE (07:13)
[2021-03-04] MEDS ORDERED: propofoL 200 MG/20 ML VIAL As Ordered ONE (07:13)
[2021-03-04] MEDS ORDERED: METOCLOPRAMIDE INJ 10MG/2ML VIAL (J2765 PER 1) As Ordered ONE (07:13)
[2021-03-04] MEDS ORDERED: MIDAZOLAM INJ 2MG/2ML VIAL (J2250 PER 1MG) As Ordered ONE (07:13)
[2021-03-04] MEDS ORDERED: fentaNYL 100 MCG/2 ML INJECTION (J3010) As Ordered ONE (07:13)
[2021-03-04] MEDS ORDERED: ROCURONIUM BROMIDE 50 MG/5 ML VIAL As Ordered ONE (07:13)
[2021-03-04] MEDS ORDERED: ONDANSETRON 4MG/2ML VIAL As Ordered ONE (07:13)
[2021-03-04] MEDS ORDERED: ACETAMINOPHEN 1000MG 100ML IV BTL (OFIRMEV) (J0131 PER 10MG) As Ordered ONE (07:13)
[2021-03-04] MEDS ORDERED: HEPARIN SOD (PORCINE) 5000UNITS/ML 1ML VIAL/SYRINGE As Ordered ONE (07:43)
[2021-03-04] MEDS ORDERED: ceFAZolin 1GM VIAL (J0690 PER 500MG) As Ordered ONE (07:49)
[2021-03-04] MEDS ORDERED: KETOROLAC 60MG 2ML VIAL As Ordered ONE (08:59)
[2021-03-04] MEDS ORDERED: dexameTHASONE 4 MG/ML 1ML VIAL (J1100 PER 1MG) As Ordered ONE (08:59)
[2021-03-04] MEDS ORDERED: ULTR50TA8 PO (09:29)
[2021-03-04] MEDS ORDERED: oxyCODONE 5MG TAB PO PRN (09:40)
[2021-03-04] MEDS ORDERED: ONDANSETRON 4MG/2ML VIAL IV PRN (09:40)
[2021-03-04] MEDS ORDERED: fentaNYL 100 MCG/2 ML INJECTION (J3010) IV PRN (09:40)
[2021-03-04] MEDS ORDERED: HYDROMORPHONE HCL 0.5 MG/ 0.5 ML SYRINGE (J1170 PER 1) IV PRN (09:40)
[2021-03-04] MEDS ORDERED: LR 1,000 ML IV SCH (09:40)
[2021-03-04 12:05] VITALS: BP 128/77
--- NOTE | 2021-03-04 15:40 | REP ---
INDICATION: LEFT BREAST ATYPICAL DUCTAL HYPERPLASIA. COMPARISON: 02/12/2021. TECHNIQUE: Specimen radiographs are performed. FINDINGS: Biopsy clip is seen within the specimen. Closest margin of tissue is 7 mm from the clip. There is an adjacent localization needle and wire. IMPRESSION: Previous biopsy clip within the specimen. RECOMMENDATION: Clinical follow-up. <Electronically signed by Mayakn Vega > 03/04/21 [id number]
--- NOTE | 2021-03-04 15:41 | REP ---
INDICATION: LEFT BREAST ATYPICAL DUCTAL HYPERPLASIA. COMPARISON: None. TECHNIQUE: Dr. Figueroa utilized ultrasound intraoperatively. FINDINGS: Dr. Figueroa placed a localizing wire in the left breast. IMPRESSION: I was not present for the procedure. <Electronically signed by Mayank Vega > 03/04/21 [id number]
--- NOTE | 2021-03-08 09:43 | ROOPDOC ---
[facility] Report Of Operation Report of Operation DATE OF PROCEDURE: 03/04/21 PREPROCEDURE DIAGNOSES: left atypical ductal hyperplasia POSTPROCEDURE DIAGNOSES: left atypical ductal hyperplasia PROCEDURE: Left breast excisional biopsy with intraop wire placement SURGEON: Philip Figueroa ANESTHESIA: general ESTIMATED BLOOD LOSS: Approximately 50 mL. COMPLICATIONS: none REMARKS: wire and the clip seen in specimen DESCRIPTION OF PROCEDURE: INDICATIONS: Ms. Rocio Prado is [id number] woman who was found to have suspicious calcifications on screening left breast mammogram in spring 2019. She did not pursue sampling as she was afraid of COVID 19 pandemic. Repeat mammogram was done in the Spring 2020 and showed again suspicious findings in the left breast. Stereotactic biopsy was done of the left breast calcifications and pathology came back as atypical ductal hyperplasia. Excisional biopsy of the left breast was offered to the patient. She was medically cleared for surgery by her primary care doctor. Risks and possible complications of surgical procedure including bleeding, infection and injury to surrounding structures were explained to the patient and she wished to proceed. Consent was signed. My initials were placed on the operative site. Subcutaneous injection of 5000 units of heparin was done. DETAILS: Patient was taken to the operating room and placed on the operating room table. A sign in was called stating patients name, date of and the procedure to be done. Preoperative antibiotics were infused. Smooth induction of general anesthesia was done. Patients hands were extended on arm rests. Care was taken not to over extend the arms. Pillow was placed under the knees and a foam was placed under the heels. Sequential compression devices were placed and assured to function correctly. Procedure was started with left breast intraop wire localization. Appropriate time out was done and patients name, date of , and the procedure to be done were confirmed. Left breast was cleaned by me. Intraoperative ultrasound was used to confirm location of the Hydromark clip. Location of the clip was marked on the skin as well. 21 G Kopans Breast Lesion Localization Needle was used to place 25 cm wire. The wire was placed next to the clip. The end of the wire was passed slightly distal to the clip. The images were captured confirming adequate placement of the localizing wire. Tube Making Machine Operator assisted with the wire placement. Next, patients left breast and axilla were prepped and draped in the usual fashion. Care was taken not to displace the wire. Appropriate time out was done again prior second part of the procedure. Patients name, date of , and the procedure to be done were confirmed. Next, local anesthetic using 1% lidocaine and 0.25 % Marcaine 50/50 mix was injected at the site of planned periareolar incision. The incision was made with the scalpel. Subcutaneous skin flaps were raised and the guide wire was carefully pulled into the wound. Dissection was carries along the wire until the previously marked on the skin area of target lesion location was encountered. At this point, wider excision of the tissue surrounding the wire was done. The Hydromark clip was identified in the tissue with intraoperative hockey stick ultrasound probe. The end of the wire was identified with palpation. The excisional biopsy specimen was carefully removed from the breast keeping its proper orientation and moved to the back table where margins were marked with the surgical inking kit following the standard colors recommendations. The specimen measured 3x2x2 cm. Specimen was then placed on the grid and placed in [employer] Specimen Imaging System. The image revealed the wire and the Hydromark in the specimen. The specimen was labeled with patients name and left excisional biopsy and sent to pathology. Next, the wound was irrigated thoroughly and adequate hemostasis was assured. Additional local anesthetic was injected into surrounding tissues. space was approximated with 2-0 Vicryl. The dermis was closed with 3-0 Vicryl and skin was closed with 4-0 Monocryl. Surgical glue was placed over the incision. Patient emerged from the anesthesia without any problems. Fluffs were placed over the operative site and patients chest was wrapped snuggly in the MACO wrap. Sponge and instrument counts were done and were correct. Patient tolerated procedure well and was taken to recovery unit in stable condition. PHILIP FIGUEROA DO March 08, 2021 09:43
== END 2021-03-04 12:30 | disposition home or self-care (01) ==
LOC: M SDC 06:21
PROVIDERS: ATTEND Surgery
DX: N60.32 Fibrosclerosis of left breast (principal); I88.9 Nonspecific lymphadenitis, unspecified; Z91.89 Other specified personal risk factors, not elsewhere classified; N63.10 Unspecified lump in the right breast, unspecified quadrant; Z80.9 Family history of malignant neoplasm, unspecified; N60.89 Other benign mammary dysplasias of unspecified breast; E11.9 Type 2 diabetes mellitus without complications; I10 Essential (primary) hypertension; E78.00 Pure hypercholesterolemia, unspecified; K21.9 Gastro-esophageal reflux disease without esophagitis; D64.9 Anemia, unspecified; Z87.442 Personal history of urinary calculi; Z79.899 Other long term (current) drug therapy; Z79.84 Long term (current) use of oral hypoglycemic drugs
CPT/HCPCS: 19125; 76942; 81025; 88307; J0131; J0690; J1100; J1644; J1885; J2250; J2405; J2765; J3010

== ENCOUNTER → 2021-04-01 | Outpatient (CLI) | payer OTHER ==
[~2021-04-01] MED LIST changes: -HEPARIN SOD (PORCINE) 5000UNITS/ML 1ML VIAL/SYRINGE SQ ONE; -LR 1,000 ML IV ONE; +ULTR50TA8 PO; -ceFAZolin SOD 2 GM in IV 1 EA IV ONE
--- NOTE | 2021-04-02 04:19 | REP ---
INDICATION: I88.9 AXILLARY LYMPHADENITIS COMPARISON: None TECHNIQUE: Realtime grayscale ultrasound examination using curved array transducer. FINDINGS: Directed ultrasound examination of the right axillary region demonstrates multiple lymph nodes measuring up to 8 x 3 x 13 mm, 9 x 5 x 8 mm, and 8 x 5 x 9 mm. IMPRESSION: Relatively normal appearing right axillary lymph nodes. <Electronically signed by Pravin Lopez > 04/02/21 0414
== END ==
LOC: M WHC 08:54
PROVIDERS: ATTEND Surgery
DX: I88.9 Nonspecific lymphadenitis, unspecified (principal)

== ENCOUNTER → 2021-07-04 | Outpatient (CLI) | payer OTHER ==
[~2021-07-04] MED LIST changes: +TAMO10TA PO
[2021-07-04 13:53] LABS: BLOOD UREA NITROGEN 12 MG/DL (7-18); CALCIUM LEVEL 8.3 MG/DL (8.5-10.1); CARBON DIOXIDE LEVEL 24 MEQ/L (21-32); CHLORIDE LEVEL 111 MEQ/L (98-107); GLOMERULAR FILTRATION RATE > 60.0 (>58); GLUCOSE, FASTING 162 MG/DL (70-100); POTASSIUM SERUM 3.8 MEQ/L (3.5-5.1); SODIUM LEVEL 141 MEQ/L (136-145)
== END ==
LOC: M PLALAB 11:38
PROVIDERS: ATTEND Surgery
DX: Z91.89 Other specified personal risk factors, not elsewhere classified (principal)

== ENCOUNTER → 2021-07-16 | Outpatient (CLI) | payer OTHER ==
[~2021-07-16] MED LIST changes: +PROHANCE 279.3MG/ML 15ML VIAL As Ordered ONE
--- NOTE | 2021-07-16 13:19 | REP ---
INDICATION: ATYPICAL DUCTAL HYPERPLASIA OF RT BREAST. Patient is status post stereotactic needle biopsy and excisional biopsy left breast for microcalcifications. Atypical ductal hyperplasia. COMPARISON: Comparison mammography is from January 09, 2021. TECHNIQUE: Three Nan MRI imaging was performed with a dedicated breast coil. Axial, coronal, and sagittal T1 and T2 weighted scans were obtained with and without fat saturation in the usual fashion. The study includes dynamically acquired post gadolinium-enhanced imaging with image subtraction. Maximum intensity projection and multi planar reformation imaging is included as well. This study is interpreted with the aid of eTutorD, an FDA approved computer aided detection (CAD) software program, on a dedicated breast MRI workstation. The gadolinium enhancement dose is 14 mL of intravenous ProHance. FINDINGS: There is a mild amount of fibroglandular tissue bilaterally corresponding with the mammographic pattern. There is mild background parenchymal enhancement. There is no evidence of axillary lymphadenopathy or significant breast cystic change. There is an area of postoperative edema and or fibrosis in the 12 o'clock position of the left breast anterior 3rd. There is benign pattern enhancement in this postoperative tissue. High-resolution pre and post-contrast T1 and T2 weighted scans show no suspicious morphologic abnormality in either breast. Dynamically acquired sequential postcontrast images show no suspicious area of enhancement and washout kinetics in either breast to suggest malignancy. Subtraction images show no additional abnormality. IMPRESSION: BI-RADS category 2 benign bilateral breast MRI findings. <Electronically signed by Ricki Keith > 07/16/21 8231
== END ==
LOC: M RAD 10:33
PROVIDERS: ATTEND Surgery
DX: N60.92 Unspecified benign mammary dysplasia of left breast (principal); Z91.89 Other specified personal risk factors, not elsewhere classified
CPT/HCPCS: A9576; C8908